=== PATIENT | female | born 1995 | race Caucasian/White ===

== ENCOUNTER 2017-12-05 18:19 | Emergency (ER) | payer MEDICAID, SELFPAY ==
[2017-12-05 18:21] VITALS: BP 131/77; PULSE 125; RESP 16; TEMP 36; O2SAT 95; BMI 35.2
--- NOTE | 2017-12-05 18:25 | ED.RN ---
PT REPORTS THAT SHE DOES NOT WANT TO WAIT IN WAITING ROOM. THIS RN OFFERED PT A WHEELCHAIR. PT REFUSED. PT EDUCATED THAT SHE SHOULD NOT DRIVE IF SHE IS FEELING BAD OR DIZZY. P[T EDUCATED THAT BASED ON SX SHE WOULD NEED EVALUATED IN ED PRIOR TO GOING TO OB. PT STATES, I AM LEAVING I WILL JUST GO TO [place].
== END 2017-12-05 19:17 | disposition left against medical advice (07) ==
LOC: ED 19:02
PROVIDERS: Emergency Provider Emergency Medicine
DX: R11.2 Nausea with vomiting, unspecified (principal)

== ENCOUNTER 2017-12-21 20:20 | Outpatient (CLI) | payer MEDICAID, SELFPAY ==
[2017-12-21 21:13] VITALS: BMI 35.4
[2017-12-21 21:25] LABS: Color, Urine Yellow (Yellow); Glucose, Dipstick Normal (Normal); Ketone-Dipstick 5 mg/dl (Negative); Leukocyte Esterase-Dipstick 25 /ul (Negative); Nitrite-Dipstick Negative (Negative); Occult Blood-Urine Negative /ul (Negative); Protein-Dipstick 15 mg/dl (Negative); Specific Gravity, Urine 1.025 (1.002-1.030); Urine Bilirubin Dipstick Negative (Negative); Urine Clarity Clear (Clear); Urine Urobilinogen 1 mg/dl (Normal)
[2017-12-21 21:31] LABS: Red Blood Cells-Urine 0-5 SEEN /hpf (0-5); Squamous Epithelial Cells - UA 5-10 SEEN /hpf (5-10); White Blood Cells 0-5 SEEN /hpf (0-5)
[2017-12-21 21:32] LABS: Bacteria RARE /hpf (None Seen); Calcium Oxalate Crystals Ur RARE /hpf (<or=2+); Mucous, Urine RARE /hpf (<or=2+)
--- NOTE | 2017-12-22 11:37 | OB.TRI.NOTE ---
History of Present Illness Date of Service: 12/21/17 Was patient seen by the physician?: No Reason For Visit: R/O LABOR Date of Service: 12/21/17 Final TONEY: 03/25/18 Final TONEY Source: US <20 weeks Gestational age: 26 Weeks and 5 Days History of Present Illness: 26+ week uterine presents with lower pelvic pressure. She has had similar symptoms in the past. Had a prior . Denies any contractions or bleeding. Good movement. Home Medications Medication Instructions Recorded NK [NK] 11/30/17 Allergies latex Allergy (Verified 12/21/17 21:15) Hives oxycodone [From Percocet] Adverse Reaction (Verified 12/21/17 21:15) Vomiting NST - FHR Rate Baby A NST Reactive:: Yes Impression/Plan 26+ week intrauterine with some pelvic pressure. Reactive nonstress test. No contractions noted on monitor. Urinalysis shows no blood or bacteria; will send urine for culture and sensitivity. Increase fluids, use Tylenol, call if pressure worsens. Cervix nonthreatening. Routine follow-up in the office.
--- NOTE | 2017-12-22 11:47 | OB.TRI.HP_ITS ---
History of Present Illness Date of Service: 12/21/17 Was patient seen by the physician?: No Reason For Visit: R/O LABOR Date of Service: 12/21/17 Final TONEY: 03/25/18 Final TONEY Source: US <20 weeks Gestational age: 26 Weeks and 5 Days History of Present Illness: 26+ week uterine presents with lower pelvic pressure. She has had similar symptoms in the past. Had a prior . Denies any contractions or bleeding. Good movement. Home Medications Medication Instructions Recorded NK [NK] 11/30/17 Allergies latex Allergy (Verified 12/21/17 21:15) Hives oxycodone [From Percocet] Adverse Reaction (Verified 12/21/17 21:15) Vomiting NST - FHR Rate Baby A NST Reactive:: Yes Impression/Plan 26+ week intrauterine with some pelvic pressure. Reactive nonstress test. No contractions noted on monitor. Urinalysis shows no blood or bacteria ; will send urine for culture and sensitivity. Increase fluids, use Tylenol, call if pressure worsens. Cervix nonthreatening. Routine follow-up in the office.
== END 2017-12-21 22:25 | disposition home or self-care (01) ==
LOC: WPOUT 20:23 → WP 20:23
PROVIDERS: Visit Provider Obstetrics & Gynecology
DX: O34.219 Maternal care for unspecified type scar from previous cesarean delivery (principal); Z3A.26 26 weeks gestation of pregnancy
CPT/HCPCS: 59050; 81001; 87086; 87088; 99218; G0378

== ENCOUNTER → 2017-12-23 11:32 | Outpatient (CLI) | payer MEDICAID, SELFPAY ==
[2017-12-23 13:56] LABS: Hematocrit 34.5 % (37-47); Hemoglobin 11.5 g/dl (12.0-15.0); Mean Corp Hgb Conc 33.3 g/gl (32-36); Mean Corpuscular Hgb 31.1 pg (27.0-32.0); Mean Corpuscular Volume 93.2 fL (81-99); Mean Platelet Vol. 11.2 fl (6.2-12.0); Platelet Count 148 K/mm3 (150-450); RBC Distribution Width CV 13.2 % (11.6-14.6); RBC Distribution Width SD 43.6 fl (35.1-43.9); White Blood Count 8.1 K/mm3 (4.4-11.0)
[2017-12-23 13:57] LABS: Scan Indicated on CBC? Y/N NO
[2017-12-23 14:14] LABS: Glucose Challenge Gest 1H 50g 87 mg/dL (70-140)
== END ==
PROVIDERS: Visit Provider Obstetrics & Gynecology
DX: Z34.82 Encounter for supervision of other normal pregnancy, second trimester (principal)
CPT/HCPCS: 36415; 82950; 85027

== ENCOUNTER 2017-12-31 20:00 | Outpatient (CLI) | payer MEDICAID, SELFPAY ==
[2017-12-31 20:30] VITALS: BMI 35.9
[2017-12-31 21:22] LABS: Bacteria 0 SEEN /hpf (None Seen)
[2017-12-31 21:25] LABS: Color, Urine Yellow (Yellow); Glucose, Dipstick Normal (Normal); Ketone-Dipstick 5 mg/dl (Negative); Leukocyte Esterase-Dipstick 25 /ul (Negative); Nitrite-Dipstick Negative (Negative); Occult Blood-Urine 10 /ul (Negative); Protein-Dipstick 15 mg/dl (Negative); Specific Gravity, Urine 1.025 (1.002-1.030); Urine Bilirubin Dipstick Negative (Negative); Urine Clarity Sl. Cloudy (Clear); Urine Urobilinogen Normal (Normal)
[2017-12-31 21:46] LABS: Amorphous Sediment 1+ URATE; Mucous, Urine 2+ /hpf (<or=2+); Red Blood Cells-Urine 0-5 SEEN /hpf (0-5); Squamous Epithelial Cells - UA 0-5 SEEN /hpf (5-10); White Blood Cells 0-5 SEEN /hpf (0-5)
--- NOTE | 2018-01-02 07:42 | OB.TRI.NOTE ---
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 She ate peanut butter and drank OJ at work and came in here. States no movement. C/O pains, but far apart Pain in epigastrium and now in her back. That resolved. Audible movement noted by RN. Home Medications Medication Instructions Recorded Butalb/Acetaminophen/Caffeine 1 each PO Q6H PRN PRN 12/31/17 [Calknb-Lsyencgc-Ssiv 50-325-40] Allergies latex Allergy (Verified 12/31/17 20:30) Hives oxycodone [From Percocet] Adverse Reaction (Verified 12/31/17 20:30) Vomiting Physical Exam Cervix Dilation (cm): 0 Station: -3 Effacement (%): 0 NST - FHR Rate Baby A Baseline: 130-140s with accels to 150s Variability:: Moderate Accelerations:: 10 x 10 Decelerations:: None NST Reactive:: Yes, Appropriate for gestational age FHR Category:: Category I Uterine Activity:: no UCs noted Impression/Plan 28 wk female with abdominal pain (resolved) shaking at work and low blood sugar per nurse there. NO movement felt by pt but audible on toco False labor Check UA: no bacteria. Sp Gr 10.25 (dehydrated) Home. Ofc appt as scheduled.
== END 2017-12-31 21:15 | disposition home or self-care (01) ==
LOC: WPOUT 20:26 → WP 20:27
PROVIDERS: Visit Provider Obstetrics & Gynecology
DX: O47.03 False labor before 37 completed weeks of gestation, third trimester (principal); Z3A.28 28 weeks gestation of pregnancy; O34.219 Maternal care for unspecified type scar from previous cesarean delivery
CPT/HCPCS: 59025; 59050; 81001; 99218; G0378

== ENCOUNTER → 2018-01-07 10:26 | Outpatient (CLI) | payer MEDICAID, SELFPAY ==
[2018-01-07 11:38] LABS: Absolute Lymphocyte Count 1.39 X10^3/ul (0.83-4.51); Basophil# 0.02 X10^3/uL; Basophil% 0.2 % (0-1); Eosinophil# 0.09 X10^3/uL; Hematocrit 35.6 % (37-47); Hemoglobin 11.4 g/dl (12.0-15.0); Lymphocyte # 1.39 X10^3/ul (4.0); Lymphocyte % 15.2 % (19-41); Mean Corpuscular Hgb 30.2 pg (27.0-32.0); Mean Corpuscular Volume 94.4 fL (81-99); Mean Platelet Vol. 10.8 fl (6.2-12.0); Monocyte# 0.63 X10^3/uL; Monocyte% 6.9 % (0-10); Neutrophil # 6.99 X10^3/uL (2.7-7.7); Neutrophil % 76.4 % (47-70); Platelet Count 148 K/mm3 (150-450); RBC Distribution Width SD 43.1 fl (35.1-43.9); Red Blood Count 3.77 M/mm3 (4.2-5.4); White Blood Count 9.2 K/mm3 (4.4-11.0)
[2018-01-07 11:43] LABS: POSITIVE COUNT NO; POSITIVE DIFFERENTIAL NO; POSITIVE MORPHOLOGY NO
[2018-01-07 12:13] LABS: ALB/GLOB Ratio 0.6 RATIO (0.9-2.4); AST(SGOT) 15 U/L (15-37); Alanine Aminotransfer ALT/SGPT 18 U/L (13-56); Albumin, Serum 2.6 g/dL (3.2-5.0); Alkaline Phosphatase 90 U/L (45-117); Anion Gap 8 (5-15); BUN 8 mg/dL (7-18); BUN/Creat Ratio 17.8 RATIO (10-20); Calcium,Total 8.3 mg/dL (8.5-10.1); Chloride 104 mmol/L (98-107); Creatinine, Serum 0.45 mg/dL (0.55-1.02); EST Glomerular Filtration Rate 185 mL/min (>60); Est Glom Filt Rate - Afr Amer 224 mL/min (>60); Globulin 4.2 g/dL (2.2-4.2); Glucose 77 mg/dL (74-106); Potassium 3.5 mmol/L (3.5-5.1); Protein, Total 6.8 g/dL (6.4-8.2); Sodium Level 138 mmol/L (136-145)
== END ==
PROVIDERS: Visit Provider Obstetrics & Gynecology
DX: O26.899 Other specified pregnancy related conditions, unspecified trimester (principal); R51 Headache; Z3A.00 Weeks of gestation of pregnancy not specified
CPT/HCPCS: 36415; 80053; 85025

== ENCOUNTER 2018-02-01 12:35 | Outpatient (CLI) | payer MEDICAID, SELFPAY ==
[2018-02-01 12:47] VITALS: BMI 36.9
--- NOTE | 2018-02-01 13:40 | US_ITS ---
US OB Limited 1 Or More Fetus INDICATION: bleeding with COMPARISON: None TECHNIQUE: Ultrasonographic grayscale, Doppler duplex investigation of the FINDINGS: There is a single live intrauterine gestation in cephalic presentation with heart rate of 133 beats per minute. The placenta is located fundal and is homogeneous. No evidence of placenta abruption. The KALEE is normal with 15 cm. Estimated gestational age by today's measurements is 33 weeks and 5 days (biparietal diameter 8.4 cm, head circumference 31.5 cm, abdominal circumference 28.3 cm, femur length 6.3 cm. Estimated weight by today's measurements is 2066 g with a standard deviation of 300 g. US/OB Limited With Biometrics IMPRESSION: Single live intrauterine gestation with estimated gestational age of 33 weeks and 5 days. heart rate 133 bpm. Estimated weight 2066 g. Cephalic presentation. KALEE 15 cm. Fundal homogeneous placenta. at 1709 Reported and signed by: Julia Clarke MD Electronically Signed: Julia Clarke MD at 16:07 EDT Tel , Service support ,
[2018-02-01 13:58] LABS: Bacteria 0 SEEN /hpf (None Seen)
[2018-02-01 13:59] LABS: Color, Urine Yellow (Yellow); Glucose, Dipstick Normal (Normal); Ketone-Dipstick Negative (Negative); Leukocyte Esterase-Dipstick 500 /ul (Negative); Nitrite-Dipstick Negative (Negative); Occult Blood-Urine 150 /ul (Negative); Protein-Dipstick 15 mg/dl (Negative); Urine Bilirubin Dipstick Negative (Negative); Urine Clarity Sl. Cloudy (Clear); Urine Urobilinogen Normal (Normal)
[2018-02-01 14:05] LABS: Mucous, Urine RARE /hpf (<or=2+); Red Blood Cells-Urine 5-10 SEEN /hpf (0-5); Squamous Epithelial Cells - UA 5-10 SEEN /hpf (5-10); White Blood Cells 0-5 SEEN /hpf (0-5)
[2018-02-01] MEDS: Nitrofurantoin Macrocrystals 100 MG Capsule PO (15:40)
--- NOTE | 2018-02-02 08:13 | OB.TRI.NOTE ---
History of Present Illness Date of Service: 02/01/18 Was patient seen by the physician?: Yes Reason For Visit: BLEEDING Date of Service: 02/01/18 Final TONEY: 03/25/18 Gestational age: 32 Weeks and 5 Days History of Present Illness: 23 yo female with h/o two prior C/S deliveries at term presents with CC of vaginal bleeding this am and of dec FM for one hour. States pain in lower back also. No h/o kidney stones. Possibly some burning with urination. Allergies latex Allergy (Verified 01/07/18 09:41) Hives oxycodone [From Percocet] Adverse Reaction (Verified 01/07/18 09:41) Vomiting Physical Exam General: Alert, Oriented x3, Cooperative, No apparent distress Abdomen: Soft, Gravid Cervix Dilation (cm): 0 - SSE: no vaginal bleeding. NST - FHR Rate Baby A Baseline: 130-140s avg with accels to 160-170 No UC Variability:: Moderate Accelerations:: 15 x 15 Decelerations:: None NST Reactive:: Yes, Appropriate for gestational age FHR Category:: Category I Uterine Activity:: No UCs Impression/Plan 32 wk Low back pain. ? dysuria Bleeding. Pelvic exam: no vaginal bleeding. Suspect coming from urine. UA showed + bld. Ultrasound: WNL , placanta without evidence of bleed UTI RX sent in for Macrobid RTO as scheduled for next PNV. Will notify of culture as available.
== END 2018-02-01 15:45 | disposition home or self-care (01) ==
LOC: WPOUT 12:42 → WP 02-03 08:41
PROVIDERS: Visit Provider Obstetrics & Gynecology
DX: O23.43 Unspecified infection of urinary tract in pregnancy, third trimester (principal); O34.219 Maternal care for unspecified type scar from previous cesarean delivery; Z3A.32 32 weeks gestation of pregnancy; Z91.040 Latex allergy status
CPT/HCPCS: 59025; 59050; 76815; 76816; 81001; 87086; 87088; 99218; G0378

== ENCOUNTER 2018-02-09 15:05 | Outpatient (CLI) | payer MEDICAID, SELFPAY ==
[2018-02-09 15:51] VITALS: BMI 37.4
--- NOTE | 2018-02-10 04:17 | OB.TRI.HP_ITS ---
History of Present Illness Date of Service: 02/09/18 Was patient seen by the physician?: No Reason For Visit: COMPLAINT OF HEADACHE Date of Service: 02/09/18 Final TONEY: 03/25/18 Gestational age: 33 Weeks and 5 Days History of Present Illness: 33+ week IUP who presents with complaints of migraine-like headache with driving and numbness down her right side. Arrived on the unit with headache in both eyes but denies sensitivity to light. Able to talk and text on the phone without difficulty. Denies feeling any contractions. Patient has a repeat C- section scheduled for March 18. Pain is constant and rates it 5-6 out of 10 in both eyes patient took Tylenol about 2 hours prior to presentation. This provided no relief. Allergies latex Allergy (Verified 01/07/18 09:41) Hives oxycodone [From Percocet] Adverse Reaction (Verified 01/07/18 09:41) Vomiting NST - FHR Rate Baby A NST Reactive:: Yes Impression/Plan 33+ week intrauterine with mild migraine headache. Discussed options for treatment and patient elected to be discharged to home given her headache is fairly mild and she does not wish to go to the emergency room for further treatment. heart tones are reactive. Follow-up in the office tomorrow if headache is persisting or sooner return to the hospital if headache is worsening. No evidence of toxemia.
== END 2018-02-09 16:25 | disposition home or self-care (01) ==
LOC: WPOUT 15:29 → WP 15:29
PROVIDERS: Visit Provider Obstetrics & Gynecology
DX: G43.909 Migraine, unspecified, not intractable, without status migrainosus (principal); O26.893 Other specified pregnancy related conditions, third trimester; Z3A.33 33 weeks gestation of pregnancy; O34.211 Maternal care for low transverse scar from previous cesarean delivery; Z91.040 Latex allergy status
CPT/HCPCS: 59050; 99218; G0378

== ENCOUNTER 2018-02-18 19:35 | Outpatient (CLI) | payer MEDICAID, SELFPAY ==
[2018-02-18 20:10] VITALS: BMI 39.7
[2018-02-18 20:45] LABS: ROM Internal Control Test YES-OK TO RESULT pt. (Internal QC); ROM Patient Test Negative (Negative)
--- NOTE | 2018-02-19 07:53 | OB.TRI.NOTE ---
History of Present Illness Date of Service: 02/18/18 Was patient seen by the physician?: No Reason For Visit: R/O LABOR Date of Service: 02/18/18 Final TONEY: 03/25/18 Gestational age: 35 Weeks and 0 Days History of Present Illness: 23 yo female at 35 wk EGA with h/o two prior term C/S deliveries. Planned repeat C/S at 39 wks EGA. Called in to state gush of fluid noted when sitting on couch. Some cramping. Advised to come in for evaluation of possible SROM. States back pain and irregular UCs to nurse. Allergies latex Allergy (Verified 01/07/18 09:41) Hives oxycodone [From Percocet] Adverse Reaction (Verified 01/07/18 09:41) Vomiting Physical Exam Cervix Dilation (cm): 0 Station: -3 Effacement (%): 0 NST - FHR Rate Baby A Baseline: 110-120s accels to 150s Variability:: Moderate Accelerations:: 15 x 15 Decelerations:: None NST Reactive:: Yes, Appropriate for gestational age FHR Category:: Category I Uterine Activity:: No regular UCs Impression/Plan 35 wk False labor, SROM NEGATIVE. Reactive NST home. RTO as scheduled for visit.
== END 2018-02-18 21:30 | disposition home or self-care (01) ==
LOC: WPOUT 20:02 → WP 20:03
PROVIDERS: Visit Provider Obstetrics & Gynecology
DX: O47.03 False labor before 37 completed weeks of gestation, third trimester (principal); Z3A.35 35 weeks gestation of pregnancy; O34.219 Maternal care for unspecified type scar from previous cesarean delivery
CPT/HCPCS: 59025; 59050; 84112; 99218; G0378

== ENCOUNTER → 2018-02-25 13:01 | Outpatient (CLI) | payer MEDICAID, SELFPAY ==
[2018-02-25 15:18] LABS: Group B Strep DNA By PCR Negative (Negative); Internal Control PASS; Probe Check PASS; Specimen Processing Control PASS
== END ==
PROVIDERS: Visit Provider Obstetrics & Gynecology
DX: Z36.85 Encounter for antenatal screening for Streptococcus B (principal)
CPT/HCPCS: 87081; 87653

== ENCOUNTER 2018-03-08 23:00 | Outpatient (CLI) | payer MEDICAID, SELFPAY ==
[2018-03-08 23:22] VITALS: BMI 39.3
--- NOTE | 2018-03-09 09:54 | OB.TRI.NOTE ---
History of Present Illness Date of Service: 03/08/18 Reason For Visit: R/O LABOR Date of Service: 03/08/18 Final TONEY: 03/25/18 Final TONEY Source: US <20 weeks Gestational age: 37 Weeks and 5 Days History of Present Illness: 37+ week intrauterine with prior presents to rule out labor. Home Medications Medication Instructions Recorded Acetaminophen [Tylenol Extra 1,000 mg PO Q8 03/08/18 Strength] Allergies latex Allergy (Verified 01/07/18 09:41) Hives oxycodone [From Percocet] Adverse Reaction (Verified 01/07/18 09:41) Vomiting NST - FHR Rate Baby A NST Reactive:: Yes FHR Category:: Category I Impression/Plan 37+ week intrauterine with false labor. No contractions were noted on the monitor or palpable by the nurse. Reactive heart tones. Cervix was closed. Released to home with routine follow-up.
== END 2018-03-09 00:35 | disposition home or self-care (01) ==
LOC: WPOUT 23:14 → WP 23:15
PROVIDERS: Visit Provider Obstetrics & Gynecology
DX: O47.1 False labor at or after 37 completed weeks of gestation (principal); Z3A.37 37 weeks gestation of pregnancy; O34.219 Maternal care for unspecified type scar from previous cesarean delivery
CPT/HCPCS: 59050; 99218; G0378

== ENCOUNTER 2018-03-18 09:50 | Inpatient (IN) | payer MEDICAID, SELFPAY ==
[2018-03-11 14:40] VITALS: BMI 39.3
[2018-03-18] VITALS (30 sets, daily range): BP systolic 72–118; BP diastolic 30–77; PULSE 77–115; RESP 16–20; TEMP 35.7–36.8; O2SAT 96–100; BMI 39.0
[2018-03-18] MEDS: Lactated Ringers 1,000 ML 999 ML IV (10:25)
[2018-03-18 10:52] LABS: Hematocrit 36.5 % (37-47); Hemoglobin 11.6 g/dl (12.0-15.0); Mean Corp Hgb Conc 31.8 g/gl (32-36); Mean Corpuscular Hgb 28.8 pg (27.0-32.0); Mean Corpuscular Volume 90.6 fL (81-99); Mean Platelet Vol. 10.9 fl (6.2-12.0); Platelet Count 150 K/mm3 (150-450); RBC Distribution Width SD 46.5 fl (35.1-43.9); Red Blood Count 4.03 M/mm3 (4.2-5.4); Scan Indicated on CBC? Y/N NO; White Blood Count 6.9 K/mm3 (4.4-11.0)
[2018-03-18 11:04] LABS: Partial Thromboplast Time 28.1 Seconds (24.1-36.2); Prothrombin Time (Protime)PT. 12.8 SECONDS (11.7-14.9)
[2018-03-18] MEDS: Lactated Ringers 1,000 ML 150 ML IV (11:23)
--- NOTE | 2018-03-18 11:59 | DCINST_ITS ---
Discharge Diet: No Restrictions Discharge Activity: Return to Normal Activity, May Not Drive, May not drive while taking narcotic pain medications., May Shower Return to work on:: 05/19/18 May resume sexual activity in: 4-6 weeks Call your doctor if your incision/area has: Sudden Increased Bleeding, Increased Pain/ Swelling, Increased Redness, Foul Smelling Discharge, Swelling at the incision site Call your doctor if you observe: Fever of 101 or Higher, Inability to urinate, Inability to have a bowel movement, Using more than one pad per hour, Shortness of breath, Chest pain, Calf discomfort, Uncontrolled pain Remove Dressing in (days):: 2 Cleanse incision/area with: Soap & Water Additional Instructions: If you experience any of the following, contact your healthcare provider. * Bleeding that soaks a pad every hour for 2 hours * Fever 100.4 or higher * Unrelieved incision or abdominal pain * Swelling, redness, discharge or bleeding from your incision or episiotomy site * Your incision begins to separate * Problems urinating (including inability to urinate or burning while urinating) . * Visual changes * Severe headache * Flu-like symptoms * Pain or redness in one of both of your breasts * Pain, warmth, tenderness or swelling in your legs, especially the calf area * Frequent nausea and vomiting * Symptoms of depression or anxiety If you experience any of the following, call 911 or go to the nearest Emergency Room. * Chest pain * Problems breathing * Seizure activity * Partial or complete paralysis of a body part, slurred speech, weakness or drooping of the face, or a sudden inability to walk or hold your balance Allergies/Adverse Reactions: Allergies latex Allergy (Verified 01/07/18 09:41) Hives oxycodone [From Percocet] Adverse Reaction (Verified 01/07/18 09:41) Vomiting Medications to take at Discharge Acetaminophen [Tylenol Extra Strength] 1,000 mg PO Q8 03/08/18 Ibuprofen [Motrin] 800 mg PO TID PRN PRN #30 tab 03/18/18 Oxycodone [Oxyir] 5 - 10 mg PO Q4H PRN PRN 7 Days #30 tab 03/18/18 The following prescriptions were given: Oxycodone [Oxyir] 5 - 10 mg PO Q4H PRN PRN 7 Days #30 tab PRN Reason: Mod-Severe Pain (4-08/20) Ibuprofen [Motrin] 800 mg PO TID PRN PRN #30 tab PRN Reason: pain or cramping Follow-Up: Call to make an appointment with your doctor for an incision check in 1-2 weeks. You will also need a 6 week post- follow up appointment. Please Follow Up With: Billy Pimentel MD When: one week Primary Care Physician: Care Physician,No Primary [Primary Care Provider] - Proposed Discharge Date: 03/21/18
--- NOTE | 2018-03-18 12:00 | PCM.OPRPT ---
Problem List (1) Previous delivery, delivered Status: Chronic Comment: x 2- 53% likelihood for success, would not recommend TOLAC here in [facility] plan RLTCS if stays here. Report of Operation Date of Procedure: 03/18/18 Pre-Operative Diagnosis: Previous section (Two) Post-Operative Diagnosis: Same Surgery/Procedure Performed:: Repeat Low Transverse Section Description of Surgical Findings:: Normal appearing uterus, ovaries, and fallopian tubes. Lower uterine segment extremely thin. Amniotic fluid clear. Live male delivered from vertex presentation. Apgars 9/9. film maker: Cal Moreno Type of Anesthesia:: Spinal Anesthesiologist: Darryl Sales Special Medications: none Specimen's removed: none Drains: bernardo Estimated Blood Loss (mL): 400cc Fluids Replaced: 1500cc LR Description of Procedure: Lisbeth was taken tot he OR with IV running. Procedures, risks, and postoperative expectations discussed previously. SHe declines tubal ligation in conjunction with the planned repeat section. She was given 2 grams of Ancef intravenously prior to the procedure. SPinal anesthesia was then introduced without complication. She was then prepped and draped in the supine position with a leftward tilt. A bernardo catheter was placed aseptically. Once anesthesia deemed adequate a Pfannensteil incision was made in the lower abdomen over the prior lower abdominal scar. The underlying subcutaneous tissue was then dissected down to the level of fascia using sharp and blunt dissection. The fascia was then incised laterally in the midline and this incision was extended bilaterally with the [place] scissors. The rectus muscles were then dissected off the fascia with sharp dissection. The rectus muscles were then in the midline, the peritoneum identified and entered sharply. This defect was then extended using blunt retraction. A bladder blade was then placed. The vesicouterine peritoneum was the incised and abladder flap was created. The bladder blade was replaced. The lower uterine segment was then incised and once the membranes exposed the uterine incision was enlarged using blunt lateral and superior traction. The membranes were then ruptured with clear fluid noted. The baby's head was then delivered atraumatically followed by the body. The nose and mouth were suctioned with a bulb suction. Delayed cord clamping was employed. There was an active cry from the newbord within one minute of delivery. The cord was then clamped and cut. The placenta was then delivered manually, the uterus exteriorised and cleared of all clots and membranes. The uterine incision was then closed in two layers with #1 Vicryll suture. Where necessary figure of eight sutures of 0-Vicryl suture were used to effect excellent hemostasis. The posterior cul de sac and gutters were then cleared of all clot and fluid. Thge uterine incision was then inspected and found to be hemostatic. The peritoneum was closed with a running stitch of 2-0 vicryl. The rectus muscles were reapproximated with interrupted sutures of 0-Vicryl. The fascia was closed with a running stitch of #1 Stratofix suture. The subcutaneous tissue was closed with 2-0 Vicryl. The skin was closed with a subcuticular stitch of 4-0 MOnocryl. SPonge, lap, and needle counts were correct. She was taken to the recovery room in stable condition. Urine was noted to be clear. Grafts/Implants Used: none - Complications none - Admit VTE Documentation VTE Present on Admission: No VTE Mechan Device Prophylaxis: SCD's VTE Pharm Prophylaxis ordered?: No
[2018-03-18] MEDS: Sodium Citrate/Citric Acid 30 ML UDC PO (12:15)
[2018-03-18] MEDS: Oxytocin 30 units/NS 500 ml 30 UNITS/500 ML IV.SOLN 167 UNITS IV (12:40)
[2018-03-18] MEDS: Ondansetron 4 MG/2 ML Vial IV (13:52)
[2018-03-18] MEDS: Ketorolac 30 MG/ML Syringe IV (13:52)
[2018-03-18] MEDS: Lactated Ringers 500 ML 999 ML IV ×2 (14:15→16:15)
--- NOTE | 2018-03-18 14:25 | NURSING ---
Dr. Pimentel to room to evaluate pt. Bedside u/s done to evaluate abd/uterus. Poss. clot noted - no tachycardia observed at this time. BP changes >20%, bolus running. Pulse ox and RR stable. Pt. c/o pain and tenderness with exam of abd., worse over left side. FF @ 2/u, to left. Will check cbc and pt/ptt and call with results. Will keep Dr. Pimentel informed.
--- NOTE | 2018-03-18 15:10 | NURSING ---
Dr. Pimentel called and updated on pt. condition. Reported BP's running 80's-100's systolic, pt. more alert than she was earlier. Continue to see urine in bernardo tube, although concentrated. Pulse ox and RR rate stable, as well as pulse. Pt. continues to complain of increasing tenderness as spinal is wearing off. Discussed pt. with Dr. Lay, and no new orders from him. Will continue to observe. Will call to office for Dr. Pimentel when labs are back. No new orders at this time.
[2018-03-18 15:17] LABS: Hematocrit 30.8 % (37-47); Hemoglobin 9.7 g/dl (12.0-15.0); Mean Corp Hgb Conc 31.5 g/gl (32-36); Mean Corpuscular Hgb 29.1 pg (27.0-32.0); Mean Corpuscular Volume 92.5 fL (81-99); Mean Platelet Vol. 10.5 fl (6.2-12.0); Platelet Count 164 K/mm3 (150-450); RBC Distribution Width CV 13.7 % (11.6-14.6); RBC Distribution Width SD 44.5 fl (35.1-43.9); Red Blood Count 3.33 M/mm3 (4.2-5.4); Scan Indicated on CBC? Y/N NO; White Blood Count 11.3 K/mm3 (4.4-11.0)
[2018-03-18 15:23] LABS: International Normalized Ratio 1.1; Partial Thromboplast Time 26.7 Seconds (24.1-36.2); Prothrombin Time (Protime)PT. 14.2 SECONDS (11.7-14.9)
--- NOTE | 2018-03-18 15:40 | NURSING ---
CBC results reported to Dr. Pimentel, as well as VS, pt. alert, no changes in status - no new orders received. Plans to see pt. after office hours.
--- NOTE | 2018-03-18 16:10 | NURSING ---
Dr. Pimentel in room to see pt. Bedside u/s done, area thought to be poss. clot not bigger, poss. smaller. Pt. has tenderness to left side with fundal check. No other changes in VS. Will recheck CBC at 1900, call with major changes in that. Also will check CBC in am. No other orders received at this time. Pt. ok to eat.
--- NOTE | 2018-03-18 16:19 | PCM.PN.OB ---
Subjective: Some what painful especially fundus. Awake and alert. Attempting breast feeding. No nausea. Objective: Afeb BP 90-100/50-60s HR 70s Urine output 125cc since C/S completed at 1 pm - Physical Exam General: Alert, Oriented x3, Cooperative, No apparent distress Abdomen: Soft, - - Approipriately tender--fundus somewhat displaced to the left Extremities: No edema Psych/Mental Status: Normal Affect Comment: Vaginal bleeding light Vital Signs Temp Pulse Resp BP Pulse Ox 97.3 F L 100 16 91/31 L 98 03/18/18 13:20 03/18/18 14:05 03/18/18 14:05 03/18/18 14:05 03/18/18 14:05 Oxygen Delivery Method Room Air Weight: 234 lb 12.677 oz Body Mass Index (BMI) 39.0 Intake and Output for Last 24 Hours 03/16/18 03/17/18 03/18/18 23:59 23:59 23:59 Intake Total 2500 / 2500 Balance 2500 / 2500 Laboratory Tests Past 24 Hrs 03/18/18 03/18/18 03/18/18 10:25 10:25 10:25 WBC 6.9 RBC 4.03 L Hgb 11.6 L Hct 36.5 L MCV 90.6 MCH 28.8 MCHC 31.8 L RDW 14.0 RDW Differential 46.5 H Plt Count 150 MPV 10.9 PT 12.8 INR 1.0 APTT 28.1 Blood Type A POSITIVE Antibody Screen NEGATIVE 03/18/18 03/18/18 14:35 14:35 WBC 11.3 H RBC 3.33 L Hgb 9.7 L Hct 30.8 L MCV 92.5 MCH 29.1 MCHC 31.5 L RDW 13.7 RDW Differential 44.5 H Plt Count 164 MPV 10.5 PT 14.2 INR 1.1 APTT 26.7 Blood Type Antibody Screen Medical Necessity - Tobacco Use Smoking Status: Former smoker Assessment/Plan Hgb appropriate after C/S. I performed bedside US an may be a right lower uterine clot/hemtoma but has not changed in size over the last 1.5 hours. Will repeat CBC in 3 hours to check for stability. CBC in am as well.
--- NOTE | 2018-03-18 17:15 | NURSING ---
Pt. c/o pain rated 7/10. Order for Demerol received from anesthesia. Given to pt. Pt. c/o numbness and tingling to mouth after dose. Vomiting after dose. BP cont. to run 80's/50's, HR low 100's after Demerol dose. Discussed Phenergan with charge nurse, devorah santa. Plan to not give Phenergan at this time due to side effects and pt's VS.
--- NOTE | 2018-03-18 18:00 | NURSING ---
Discussed pt. with Dr. Coon and KALIN Richey. Discussed sx and plan of care. New pain med orders received per Dr. coon. Will continue to observe.
[2018-03-18] MEDS: Lactated Ringers 1,000 ML 100 ML IV (18:23)
[2018-03-18 19:10] LABS: Absolute Lymphocyte Count 1.12 X10^3/ul (0.83-4.51); Absolute Neutrophil Count 13.1 X10^3/uL (2.0-7.7); Basophil# 0.01 X10^3/uL; Basophil% 0.1 % (0-1); Eosinophil# 0.01 X10^3/uL; Eosinophils% 0.1 % (0-5); Hematocrit 28.3 % (37-47); Lymphocyte # 1.12 X10^3/ul (4.0); Lymphocyte % 7.5 % (19-41); Mean Corp Hgb Conc 31.8 g/gl (32-36); Mean Corpuscular Hgb 28.9 pg (27.0-32.0); Mean Platelet Vol. 10.9 fl (6.2-12.0); Monocyte# 0.74 X10^3/uL; Monocyte% 4.9 % (0-10); Neutrophil # 13.07 X10^3/uL (2.7-7.7); Neutrophil % 87.2 % (47-70); POSITIVE COUNT NO; POSITIVE DIFFERENTIAL NO; POSITIVE MORPHOLOGY NO; Platelet Count 187 K/mm3 (150-450); RBC Distribution Width CV 14.1 % (11.6-14.6); RBC Distribution Width SD 46.1 fl (35.1-43.9); Red Blood Count 3.11 M/mm3 (4.2-5.4)
[2018-03-18] MEDS: Cefazolin 1 GM/50 ML BAG IV (20:29)
[2018-03-18] MEDS: Acetaminophen 500 MG Tablet 1000 MG PO (21:14)
[2018-03-18] MEDS: Lactated Ringers 250 ML 999 ML IV (23:46)
[2018-03-19] VITALS (11 sets, daily range): BP systolic 97–119; BP diastolic 52–61; PULSE 83–114; RESP 16–18; TEMP 36.3–37.1; O2SAT 96–100
[2018-03-19] MEDS: Lactated Ringers 1,000 ML 200 ML IV ×2 (00:02→05:39)
[2018-03-19] MEDS: Cefazolin 1 GM/50 ML BAG IV (04:41)
[2018-03-19] MEDS: Acetaminophen 500 MG Tablet 1000 MG PO ×2 (05:39→16:53)
[2018-03-19] MEDS: 0.9% Saline Lock 10 ML Syringe IV (05:39)
[2018-03-19 05:41] LABS: Hemoglobin 6.4 g/dl (12.0-15.0); Mean Corpuscular Hgb 29.6 pg (27.0-32.0); Mean Corpuscular Volume 92.6 fL (81-99); Mean Platelet Vol. 10.7 fl (6.2-12.0); Platelet Count 160 K/mm3 (150-450); RBC Distribution Width CV 13.7 % (11.6-14.6); RBC Distribution Width SD 43.5 fl (35.1-43.9); Red Blood Count 2.16 M/mm3 (4.2-5.4); White Blood Count 8.6 K/mm3 (4.4-11.0)
[2018-03-19 05:46] LABS: Scan Indicated on CBC? Y/N NO
[2018-03-19 06:24] LABS: Hematocrit 19.7 % (37-47); Hemoglobin 6.3 g/dl (12.0-15.0); Mean Corpuscular Hgb 29.7 pg (27.0-32.0); Mean Corpuscular Volume 92.9 fL (81-99); Mean Platelet Vol. 10.8 fl (6.2-12.0); Platelet Count 154 K/mm3 (150-450); RBC Distribution Width SD 44.6 fl (35.1-43.9); Red Blood Count 2.12 M/mm3 (4.2-5.4); White Blood Count 8.7 K/mm3 (4.4-11.0)
[2018-03-19 06:25] LABS: Scan Indicated on CBC? Y/N NO
--- NOTE | 2018-03-19 07:44 | PN.OBGYN_ITS ---
Subjective: Appears comfortable. Pain reasonably controlled. Bleeding light. Breast feeding. Objective: AFeb VSS. Hgb with drop from 9.0 to 6.3 overnight. Urine output adequate. - Physical Exam General: Alert, Oriented x3, Cooperative, No apparent distress Lungs: Clear to auscultation, Normal air movement Cardiovascular: Regular rate, Regular Rhythm Abdomen: Soft, Non Tender, Non-Distended, - - Fundus firm midline. Tender right lower quadrant. Extremities: No edema, No Calf Tenderness Skin: No rashes Neurological: Neuro grossly intact Psych/Mental Status: Normal Affect Comment: Lochia light Vital Signs Temp Pulse Resp BP Pulse Ox 97.9 F 98 18 105/55 L 100 03/19/18 04:00 03/19/18 05:48 03/19/18 05:48 03/19/18 04:00 03/19/18 05:48 Oxygen Delivery Method Room Air Weight: 234 lb 12.677 oz Body Mass Index (BMI) 39.0 Intake and Output for Last 24 Hours 03/17/18 03/18/18 03/19/18 23:59 23:59 23:59 Intake Total 7130 / 7130 1831 / 1831 Output Total 1300 / 1300 775 / 775 Balance 5830 / 5830 1056 / 1056 Laboratory Tests Past 24 Hrs 03/18/18 03/18/18 03/18/18 10:25 10:25 10:25 WBC 6.9 RBC 4.03 L Hgb 11.6 L Hct 36.5 L MCV 90.6 MCH 28.8 MCHC 31.8 L RDW 14.0 RDW Differential 46.5 H Plt Count 150 MPV 10.9 Immature Gran % (Auto) Neut % (Auto) Lymph % (Auto) Chambers % (Auto) Eos % (Auto) Baso % (Auto) Absolute Neuts (auto) Absolute Lymphs (auto) Total Counted PT 12.8 INR 1.0 APTT 28.1 Blood Type A POSITIVE Antibody Screen NEGATIVE 03/18/18 03/18/18 03/18/18 14:35 14:35 18:55 WBC 11.3 H 15.0 H RBC 3.33 L 3.11 L Hgb 9.7 L 9.0 L Hct 30.8 L 28.3 L MCV 92.5 91.0 MCH 29.1 28.9 MCHC 31.5 L 31.8 L RDW 13.7 14.1 RDW Differential 44.5 H 46.1 H Plt Count 164 187 MPV 10.5 10.9 Immature Gran % (Auto) 0.200 Neut % (Auto) 87.2 H Lymph % (Auto) 7.5 L Chambers % (Auto) 4.9 Eos % (Auto) 0.1 Baso % (Auto) 0.1 Absolute Neuts (auto) 13.1 H Absolute Lymphs (auto) 1.12 Total Counted Not Reportable PT 14.2 INR 1.1 APTT 26.7 Blood Type Antibody Screen 03/19/18 03/19/18 05:30 06:14 WBC 8.6 8.7 RBC 2.16 L 2.12 L Hgb 6.4 L 6.3 L Hct 20.0 L 19.7 L MCV 92.6 92.9 MCH 29.6 29.7 MCHC 32.0 32.0 RDW 13.7 14.0 RDW Differential 43.5 44.6 H Plt Count 160 154 MPV 10.7 10.8 Immature Gran % (Auto) Neut % (Auto) Lymph % (Auto) Chambers % (Auto) Eos % (Auto) Baso % (Auto) Absolute Neuts (auto) Absolute Lymphs (auto) Total Counted PT INR APTT Blood Type Antibody Screen Medical Necessity - Tobacco Use Smoking Status: Former smoker Assessment/Plan Hgb drop overnight. Possible right lower abdominal hematoma. Will continue to observe for now with repeat hgb at noon. If vital signs show signs of reaction to low hgb will consider transfusion or if hgb drops further. Continue bernardo for now.
[2018-03-19] MEDS: Lactated Ringers 1,000 ML 100 ML IV (08:00)
[2018-03-19 12:52] LABS: Absolute Lymphocyte Count 1.41 X10^3/ul (0.83-4.51); Absolute Neutrophil Count 5.2 X10^3/uL (2.0-7.7); Basophil# 0.01 X10^3/uL; Basophil% 0.1 % (0-1); Differential Indicated SCAN CRITERIA MET; Eosinophil# 0.07 X10^3/uL; Hematocrit 18.2 % (37-47); Hemoglobin 5.8 g/dl (12.0-15.0); Lymphocyte # 1.41 X10^3/ul (4.0); Lymphocyte % 19.9 % (19-41); Mean Corp Hgb Conc 31.9 g/gl (32-36); Mean Corpuscular Hgb 28.7 pg (27.0-32.0); Mean Corpuscular Volume 90.1 fL (81-99); Mean Platelet Vol. 10.6 fl (6.2-12.0); Monocyte# 0.34 X10^3/uL; Monocyte% 4.8 % (0-10); Neutrophil # 5.24 X10^3/uL (2.7-7.7); Neutrophil % 74.2 % (47-70); POSITIVE COUNT YES; POSITIVE DIFFERENTIAL NO; POSITIVE MORPHOLOGY NO; Platelet Count 140 K/mm3 (150-450); RBC Distribution Width CV 14.4 % (11.6-14.6); RBC Distribution Width SD 47.4 fl (35.1-43.9); Red Blood Count 2.02 M/mm3 (4.2-5.4); White Blood Count 7.1 K/mm3 (4.4-11.0)
[2018-03-19] MEDS: HYDROcodone Bitartrate/Apap 5/325 Tablet PO (12:52)
--- NOTE | 2018-03-19 12:55 | NURSING ---
PATIENT REQUESTING THORNTOWN AT THIS TIME.
--- NOTE | 2018-03-19 14:51 | CASEMGMT ---
Social Work Note Labor and Delivery Unit Consult received for resources. Chart reviewed and spoke with RN caring for patient today. Patient just recently got up today. Based on how patient has been doing medically, and how wore out patient has been so far, this caption writer will see patient tomorrow for assessment and resources. Plan: Will follow up on 03-20-18. -GEORGE Gamboa, ESCROW SECRETARY
[2018-03-19] MEDS: Ketorolac 30 MG/ML Syringe IV (18:41)
[2018-03-19] MEDS: Senna/Docusate Sodium 1 Tablet PO (20:22)
[2018-03-20] VITALS (15 sets, daily range): BP systolic 96–138; BP diastolic 48–75; PULSE 98–108; RESP 16–18; TEMP 36.3–37.5; O2SAT 98–100
[2018-03-20] MEDS: HYDROcodone Bitartrate/Apap 5/325 Tablet PO ×4 (01:28→22:05)
[2018-03-20 05:07] LABS: Absolute Lymphocyte Count 1.05 X10^3/ul (0.83-4.51); Absolute Neutrophil Count 5.6 X10^3/uL (2.0-7.7); Basophil# 0.01 X10^3/uL; Basophil% 0.1 % (0-1); Eosinophil# 0.15 X10^3/uL; Eosinophils% 2.1 % (0-5); Hematocrit 14.5 % (37-47); Lymphocyte # 1.05 X10^3/ul (4.0); Lymphocyte % 14.5 % (19-41); Mean Corp Hgb Conc 31.7 g/gl (32-36); Mean Corpuscular Hgb 28.8 pg (27.0-32.0); Mean Corpuscular Volume 90.6 fL (81-99); Mean Platelet Vol. 10.5 fl (6.2-12.0); Monocyte# 0.49 X10^3/uL; Monocyte% 6.7 % (0-10); Neutrophil # 5.56 X10^3/uL (2.7-7.7); Neutrophil % 76.6 % (47-70); Platelet Count 124 K/mm3 (150-450); RBC Distribution Width CV 14.8 % (11.6-14.6); RBC Distribution Width SD 48.3 fl (35.1-43.9); White Blood Count 7.3 K/mm3 (4.4-11.0)
[2018-03-20 05:22] LABS: Differential Indicated SCAN CRITERIA MET; Hemoglobin 4.6 g/dl (12.0-15.0); POSITIVE COUNT YES; POSITIVE DIFFERENTIAL NO; POSITIVE MORPHOLOGY NO
[2018-03-20 05:28] LABS: Differential Comment SCAN
[2018-03-20 05:29] LABS: Hypochromasia 1+
--- NOTE | 2018-03-20 05:29 | NURSING ---
Repeat CBC drawn- Results called up as critical lab - Hgb. is 4.6 Dr. Pimentel notified via phone and order received for transfusion of 2 units PRBC's
--- NOTE | 2018-03-20 07:50 | NURSING ---
Spoke with Dr Pimentel, plan is to finish transfusing 2 units PRBCs and recheck HGB [address] Pimentel of pt c/o upper abdomen pain and doctor already aware. No new plans at this time.
--- NOTE | 2018-03-20 07:54 | PN.OBGYN_ITS ---
Subjective: Having mild heasdache today. Pain right lower quadrant but reasonably controlled. Bleeding light. Breast feeding. Not dizzy. No SOB. Objective: Afeb VSS. Hgb low at 4.6 today which is 1.3 drop from yesterday am. - Physical Exam General: Alert, Oriented x3, Cooperative, No apparent distress Lungs: Clear to auscultation, Normal air movement Cardiovascular: Regular rate, Regular Rhythm Abdomen: Soft, Non-Distended, - - Tender right lower quadrant. Incision dressing dry Extremities: Edema - trace LE Skin: No rashes Neurological: Neuro grossly intact Psych/Mental Status: Normal Affect Comment: Lochia light Vital Signs Temp Pulse Resp BP Pulse Ox 98.0 F 75 16 105/63 99 03/20/18 07:40 03/20/18 07:40 03/20/18 07:40 03/20/18 07:40 03/20/18 07:40 Oxygen Delivery Method Room Air Weight: 234 lb 12.677 oz Body Mass Index (BMI) 39.0 Intake and Output for Last 24 Hours 03/18/18 03/19/18 03/20/18 23:59 23:59 23:59 Intake Total 7130 / 7130 2732 / 2732 0 / 0 Output Total 1300 / 1300 2475 / 2475 Balance 5830 / 5830 257 / 257 0 / 0 Laboratory Tests Past 24 Hrs 03/18/18 03/19/18 03/20/18 10:25 12:30 04:50 WBC 7.1 7.3 RBC 2.02 L 1.60 L Hgb 5.8 L* 4.6 L* Hct 18.2 L 14.5 L MCV 90.1 90.6 MCH 28.7 28.8 MCHC 31.9 L 31.7 L RDW 14.4 14.8 H RDW Differential 47.4 H 48.3 H Plt Count 140 L 124 L MPV 10.6 10.5 Immature Gran % (Auto) 0.000 0.000 Neut % (Auto) 74.2 H 76.6 H Lymph % (Auto) 19.9 14.5 L Dillon % (Auto) 4.8 6.7 Eos % (Auto) 1.0 2.1 Baso % (Auto) 0.1 0.1 Absolute Neuts (auto) 5.2 5.6 Absolute Lymphs (auto) 1.41 1.05 Total Counted Not Reportable Not Reportable Differential Comment SCAN Diff Path Review May foll Hypochromasia 1+ Crossmatch See Detail Medical Necessity - Tobacco Use Smoking Status: Former smoker Assessment/Plan POD#2. s/p repeat section. Drop in hemoglobin over last 24 hours. Given low level of hgb am transfusing 2 units of PRBC. Will recheck in 24 hours. Relatively asymptomatic. Likely has pelvic hematoma. If stabilized after transfusion could consider discharge late tomorrow or on 03/22.
[2018-03-20] MEDS: Ibuprofen 600 MG Tablet PO ×2 (09:41→19:09)
[2018-03-20 12:38] LABS: Pathologist Review Reviewed
--- NOTE | 2018-03-20 14:42 | CASEMGMT ---
Social Work Note - Labor and Delivery Unit Social Work Assessment completed. Refer to documentation below for further details. Date of Referral: 03/18/2018 Time of Referral: 193 Referred By: Dr. Pimentel Date of Intervention: 03/20/2018 Time of Intervention: 1210 Reason for Referral: Resources History obtained from: medical record and mother of baby (MOB) Lisbeth Escudero. Reported father of baby (FOB) Zenaida Newell present for part of conversation. Household composition: MOB and children live in a rental home. MOB reports home situation is safe and adequate. Patient's parent/guardian status: MOB and FOB have been together for about 11 months. FOB was living with MOB from May 2017 to November 2017 when FOB moved to [place] to be closer to family, as the FOBs grandmother is sick. FOB came back to [place] a few weeks ago and will be staying with MOB for about a month or so before returning to [place]. MOB reports she and FOB are still involved and together. Mingus, Bijal Newell, is the first child for MOB and FOB together. FOB reports to have 4 other children ranging in ages from 1 to 8 years old. MOB has two older children. MOBs children include: Ziggy Guevara (b. --14), Soto Escudero (b. 01-18-16) and Bijal Newell (b. --18). Each of MOBs children do have different paternity. Jeana father has no contact, does pay some child support. Aubreys father Billy Handy lives 5 doors down from SASHA, but only sees Soto intermittently. Billy does pay child support. Medical History: SASHA is G3, P2 to 3 after delivering Bijal. MOB with care starting at 10 weeks gestation. Bijal delivered via repeat caesarian section at 7 pounds 5 ounce, Apgars 8 and 9. Educational Status: MOB graduated high school. 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 MOB reports ability to read and write, no issues with learning or comprehension. Financial Status: SASHA is not currently working, not in about a month or so. 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 At this point, SASHA gets some child support about 137 a month from one father and 196 a month from another father. MOBs father has been helping MOB out financially as well. MOB reports current FOArnoldo has been contributing financially throughout this . MOB plans to apply for factory work when done with maternity leave. Infant Supplies: MOB reports to have needed supplies including a car seat, pack-n-play, bottles, clothing, diapers, wipes, and a breast pump. Childcare/Caregiver(s): MOB will be primary caregiver. MOBs father helps with early childhood director when MOB works. Transportation: MOB reports to have reliable transportation. Programs/Agencies Involved: MOB reports to have medical and 100 dollars in food assistance through [facility]. MOB reports interest in obtaining WIC, for which MOB should be able to enroll all three children. MOB reports oldest son goes to school through [employer]. Children Services/Legal Issues: MOB denies any history of or current involvement with children services. Behavioral Health Issues: Mental Health: MOB reports as a child was diagnosed with ADD, treated with Adderall. MOB reports as an adult only took this medication for about 3 weeks and this was when MOB was seeking COOKING TEACHER training and testing. MOB reports history of depression after Ziggy was born and was treated with Zoloft. MOB reports belief that Zoloft was helpful. MOB denies any official diagnosis of anxiety, but report perception that does struggle with anxiety. MOB denies any history or current thoughts, plans or intent for suicide or harm to others. MOB denies that suicide has ever been an option for MOB. MOB reports thought that did take a depression screening during , when sent to a specialist and that MOB was told depression symptoms were present. Substance Use History: MOB denies any history for self with alcohol, illicit drugs, or abuse of narcotic prescriptions. MOB reports has tried alcohol before but this is not something MOB has enjoyed or does often, and definitely not during . Drug Screens: MOB did have a negative drug screen on 08-28-17. Family/Social Stressors: MOB reports to moved apartments this , and though move was for the better to a better neighborhood, MOB did have this life change. This occurred in November. MOBs mother, who was a strong support to MOB just recently moved to [place]. FOArnoldo was living with MOB until November but moved to [place] to be with family. MOB reports this is hard right now, as wants to go to [place] but feels cannot as Ariel father is threatening to take MOB to court if MOB takes Soto out of state. MOB reports there is no legal visitation set up with Ariel christie, but reports that just doesnt feel up to fighting this man in court should he follow through with threats. MOB reports also to know that the man would not win as this man reportedly has some addiction issues. MOB reports finances are hard, that when working makes just over the income level for much support. Right now MOB is not working and is being helped out by Debra father. Support Systems: MOB reports for practical help MOBs father and brothers are helpful. MOB reports her father is a big help, and helps with the kids often. MOB reports her mother, though in [place] remains a support and will send MOB things when needed. SASHAs mother will also be up to [place] to visit at the end of March. MOB reports at home going will have help from FOB who plans to stay in [place] for at least a month. So, MOB will have FOB for a month and then SASHAs mother will be visiting for a time period. Depression/Shaken Baby/Safe Sleeping: MOB able to give appropriate responses to shaken baby and safe sleeping. MOB admits to history of depression, and reports to feel that some level of depression is present at this time. MOB reports thought that may be a good idea to start Zoloft as found this helpful before. MOB agrees to take a depression and anxiety screens during this hospital stay. ASSESSMENT: MOB up and moving around in room when high school social studies teacher entered. MOB smiling, bright affect initially. FOB present during this time. As conversation went on high school social studies teacher observed a shift in MOBs demeanor, appearing to have a difficult time as evidence by restless movements in chair, decreased eye contact, and complaints of pain. Asked FOB to leave for private conversation. When FOB left, MOB started to cry and cried intermittently throughout the rest of the visit. MOB talked about stressors listed above, and being sad that wont be able to go back to [place] with FOB. MOB reports FOB is good to MOB and treats MOB well. Supportive listening and encouragement given to MOB. MOB voiced thought that may be a good idea to start back on Zoloft. This medical underwriter agreed to talk to RN to see if RN can discussed with OBGYN if appropriate at this juncture. MOB also in agreement with referral to counseling. MOB reports last episode of counseling was as a teen when MOB suffered some trauma. MOB reports to have needed supplies for baby however, and reports for a month or so will have someone at home helping MOB with the children and transition home. MOB appearing receptive to social work visit, pleasant, cooperative, and seeming open about how currently feeling. Spoke with Shanta Baker RN, caring for MOB today. Updated to MOB's interest in starting on Zoloft, and that MOB reports past positive experience with this medicine. PLAN: Provided MOB with [place] Depression screen as well as the Generalized Anxiety Disorder, 7 item screen. Will await MOB to complete. Directed MOB that should answer this on her own, and not ask for input from others. MOB signed a release of information to [facility], MOBs choice for referral, so will be working on getting MOB a counseling appointment established. Will be following up with MOB on 03-21-18 to review mental health screens and provide resources for home going. .-ELICIA Gamboa, INCINERATOR PLANT SUPERVISOR
[2018-03-20] MEDS: Senna/Docusate Sodium 1 Tablet PO (22:05)
[2018-03-21 02:10] VITALS: BP 123/50; PULSE 105; RESP 18; TEMP 36.2
[2018-03-21] MEDS: Ibuprofen 600 MG Tablet PO (02:13)
[2018-03-21] MEDS: HYDROcodone Bitartrate/Apap 5/325 Tablet PO ×2 (03:54→10:09)
[2018-03-21 07:21] LABS: Absolute Neutrophil Count 4.1 X10^3/uL (2.0-7.7); Basophil# 0.01 X10^3/uL; Basophil% 0.1 % (0-1); Eosinophil# 0.31 X10^3/uL; Eosinophils% 4.6 % (0-5); Hematocrit 21.8 % (37-47); Hemoglobin 7.1 g/dl (12.0-15.0); Lymphocyte % 27.9 % (19-41); Mean Corp Hgb Conc 32.6 g/gl (32-36); Mean Corpuscular Hgb 30.1 pg (27.0-32.0); Mean Corpuscular Volume 92.4 fL (81-99); Mean Platelet Vol. 10.3 fl (6.2-12.0); Monocyte# 0.52 X10^3/uL; Monocyte% 7.6 % (0-10); Neutrophil # 4.05 X10^3/uL (2.7-7.7); Neutrophil % 59.5 % (47-70); Platelet Count 137 K/mm3 (150-450); RBC Distribution Width CV 14.6 % (11.6-14.6); RBC Distribution Width SD 46.4 fl (35.1-43.9); Red Blood Count 2.36 M/mm3 (4.2-5.4); White Blood Count 6.8 K/mm3 (4.4-11.0)
[2018-03-21 07:23] LABS: POSITIVE COUNT NO; POSITIVE DIFFERENTIAL NO; POSITIVE MORPHOLOGY NO
[2018-03-21 08:24] VITALS: BP 118/66; PULSE 101; RESP 16; TEMP 36.6
--- NOTE | 2018-03-21 09:13 | PCM.PN.OB ---
Subjective: Having abdominal soreness and pain. Also having headache. [place] not effective by itself for pain control. Breast feeding. Vaginal bleeding light. Objective: Afeb VSS - Physical Exam General: Alert, Oriented x3, Cooperative, No apparent distress Lungs: Clear to auscultation, Normal air movement Cardiovascular: Regular rate, Regular Rhythm Abdomen: Soft, - - Appropriately tender. Funduis firm. Incision dressing dry. Extremities: Edema - 1+ pedal edema Neurological: Neuro grossly intact Psych/Mental Status: Normal Affect Comment: Lochia light Vital Signs Temp Pulse Resp BP Pulse Ox 97.8 F 101 H 16 118/66 100 03/21/18 08:24 03/21/18 08:24 03/21/18 08:24 03/21/18 08:24 03/20/18 13:52 Oxygen Delivery Method Room Air Weight: 234 lb 12.677 oz Body Mass Index (BMI) 39.0 Intake and Output for Last 24 Hours 03/19/18 03/20/18 03/21/18 23:59 23:59 23:59 Intake Total 2732 / 2732 800 / 800 Output Total 2475 / 2475 Balance 257 / 257 800 / 800 Laboratory Tests Past 24 Hrs 03/18/18 03/20/18 03/21/18 10:25 04:50 07:00 WBC 6.8 RBC 2.36 L Hgb 7.1 L Hct 21.8 L MCV 92.4 MCH 30.1 MCHC 32.6 RDW 14.6 RDW Differential 46.4 H Plt Count 137 L MPV 10.3 Immature Gran % (Auto) 0.300 Neut % (Auto) 59.5 Lymph % (Auto) 27.9 [place] % (Auto) 7.6 Eos % (Auto) 4.6 Baso % (Auto) 0.1 Absolute Neuts (auto) 4.1 Absolute Lymphs (auto) 1.90 Total Counted Not Reportable Diff Path Review Reviewed Crossmatch See Detail Medical Necessity - Tobacco Use Smoking Status: Former smoker Assessment/Plan After transfusion of 2 units of PRBC hgb level danette appropriately. Besides headache no symptoms related to anemia. Will recheck hgb level later today and if stable will discharge to home. Breast feeding without difficulty. Declines prophylactic treatment for history of post depression. Discharge instructions and warnings given. Will send home on iron supplements. Instructed to keep Mephilex dressing in place until POD#5.
--- NOTE | 2018-03-21 09:18 | PCM.DC.SUM ---
Discharge Date and Diagnosis Date of Admission: 03/18/18 Date of Discharge: 03/21/18 - Primary Discharge Diagnosis S/P repeat section complicated by post operative anemia due to developement of pelvic hematoma. - Secondary Discharge Diagnosis Chronic Problems (Last Reviewed 01/07/18 @ 09:42 by Lady Branch) Previous delivery, delivered (Chronic) x 2- 53% likelihood for success, would not recommend TOLAC here in [facility] plan RLTCS if stays here. Hospital Course and Treatment Consultations 03/18/18 10:16 Consult: Anesthesia Routine Comment: Reason For Exam: LABOR Operations: - - Repeat low transverse C/S Procedures: - - SPinal anesthesia, transfusion of two units PRBC Summary of Care Provided: The patient is a 23 year old F [admitted for scheduled repeat section. delivery of live male was performed without complication. On post operative day #1 noted to have drop in hgb level. Likely due to developement of pelvic hematoma. She was transfused with two units PRBC on POD#2 and remained stable thereafter. SHe was discharged home on POD#3.] Discharge Diet: No Restrictions Discharge Activity: Return to Normal Activity, May Not Drive, May not drive while taking narcotic pain medications., May Shower Return to work on:: 05/19/18 May resume sexual activity in: 4-6 weeks Call your doctor if your incision/area has: Sudden Increased Bleeding, Increased Pain/ Swelling, Increased Redness, Foul Smelling Discharge, Swelling at the incision site Call your doctor if you observe: Fever of 101 or Higher, Inability to urinate, Inability to have a bowel movement, Using more than one pad per hour, Shortness of breath, Chest pain, Calf discomfort, Uncontrolled pain Remove Dressing in (days):: 2 Cleanse incision/area with: Soap & Water Home Medications: Medications to take at Discharge Acetaminophen [Tylenol Extra Strength] 1,000 mg PO Q8 03/08/18 Hydrocodone Bitart/Apap 5-325 [[place] 5/325] 1 - 2 tab PO Q4H PRN PRN 7 Days #30 tab 03/18/18 Ibuprofen [Motrin] 800 mg PO TID PRN PRN #30 tab 03/18/18 Oxycodone [Oxyir] 5 - 10 mg PO Q4H PRN PRN 7 Days #30 tab 03/18/18 Following Prescrptions Were Given to Patient: Hydrocodone Bitart/Apap 5-325 [[place] 5/325] 1 - 2 tab PO Q4H PRN PRN 7 Days #30 tab PRN Reason: Pain Oxycodone [Oxyir] 5 - 10 mg PO Q4H PRN PRN 7 Days #30 tab PRN Reason: Mod-Severe Pain (-08/20) Ibuprofen [Motrin] 800 mg PO TID PRN PRN #30 tab PRN Reason: pain or cramping Primary Care Physician: Care Physician,No Primary [Primary Care Provider] - Please Follow Up With: Billy Pimentel MD When: one week Disposition: Home Minutes spent on discharge:: 15 Patient Condition:: Good Medical Necessity - Tobacco Use Smoking Status: Former smoker Meaningful Use Info Meaningful Use Diagnoses (Choose all that apply): None applicable
--- NOTE | 2018-03-21 09:23 | DS.PCM_ITS ---
Discharge Date and Diagnosis Date of Admission: 03/18/18 Date of Discharge: 03/21/18 - Primary Discharge Diagnosis S/P repeat section complicated by post operative anemia due to developement of pelvic hematoma. - Secondary Discharge Diagnosis Chronic Problems (Last Reviewed 01/07/18 @ 09:42 by Lady Branch) Previous delivery, delivered (Chronic) x 2- 53% likelihood for success, would not recommend TOLAC here in [facility] plan RLTCS if stays here. Hospital Course and Treatment Consultations 03/18/18 10:16 Consult: Anesthesia Routine Comment: Reason For Exam: LABOR Operations: - - Repeat low transverse C/S Procedures: - - SPinal anesthesia, transfusion of two units PRBC Summary of Care Provided: The patient is a 23 year old F [admitted for scheduled repeat section. delivery of live male was performed without complication. On post operative day #1 noted to have drop in hgb level. Likely due to developement of pelvic hematoma. She was transfused with two units PRBC on POD# 2 and remained stable thereafter. SHe was discharged home on POD#3.] Discharge Diet: No Restrictions Discharge Activity: Return to Normal Activity, May Not Drive, May not drive while taking narcotic pain medications., May Shower Return to work on:: 05/19/18 May resume sexual activity in: 4-6 weeks Call your doctor if your incision/area has: Sudden Increased Bleeding, Increased Pain/ Swelling, Increased Redness, Foul Smelling Discharge, Swelling at the incision site Call your doctor if you observe: Fever of 101 or Higher, Inability to urinate, Inability to have a bowel movement, Using more than one pad per hour, Shortness of breath, Chest pain, Calf discomfort, Uncontrolled pain Remove Dressing in (days):: 2 Cleanse incision/area with: Soap & Water Home Medications: Medications to take at Discharge Acetaminophen [Tylenol Extra Strength] 1,000 mg PO Q8 03/08/18 Hydrocodone Bitart/Apap 5-325 [[place] 5/325] 1 - 2 tab PO Q4H PRN PRN 7 Days #30 tab 03/18/18 Ibuprofen [Motrin] 800 mg PO TID PRN PRN #30 tab 03/18/18 Oxycodone [Oxyir] 5 - 10 mg PO Q4H PRN PRN 7 Days #30 tab 03/18/18 Following Prescrptions Were Given to Patient: Hydrocodone Bitart/Apap 5-325 [[place] 5/325] 1 - 2 tab PO Q4H PRN PRN 7 Days #30 tab PRN Reason: Pain Oxycodone [Oxyir] 5 - 10 mg PO Q4H PRN PRN 7 Days #30 tab PRN Reason: Mod-Severe Pain (-08/20) Ibuprofen [Motrin] 800 mg PO TID PRN PRN #30 tab PRN Reason: pain or cramping Primary Care Physician: Care Physician,No Primary [Primary Care Provider] - Please Follow Up With: Billy Pimentel MD When: one week Disposition: Home Minutes spent on discharge:: 15 Patient Condition:: Good Medical Necessity - Tobacco Use Smoking Status: Former smoker Meaningful Use Info Meaningful Use Diagnoses (Choose all that apply): None applicable
--- NOTE | 2018-03-21 09:24 | DCINST_ITS ---
Discharge Diet: No Restrictions Discharge Activity: Return to Normal Activity, May Not Drive, May not drive while taking narcotic pain medications., May Shower Return to work on:: 05/19/18 May resume sexual activity in: 4-6 weeks Call your doctor if your incision/area has: Sudden Increased Bleeding, Increased Pain/ Swelling, Increased Redness, Foul Smelling Discharge, Swelling at the incision site Call your doctor if you observe: Fever of 101 or Higher, Inability to urinate, Inability to have a bowel movement, Using more than one pad per hour, Shortness of breath, Chest pain, Calf discomfort, Uncontrolled pain Remove Dressing in (days):: 2 Cleanse incision/area with: Soap & Water Additional Instructions: If you experience any of the following, contact your healthcare provider. * Bleeding that soaks a pad every hour for 2 hours * Fever 100.4 or higher * Unrelieved incision or abdominal pain * Swelling, redness, discharge or bleeding from your incision or episiotomy site * Your incision begins to separate * Problems urinating (including inability to urinate or burning while urinating) . * Visual changes * Severe headache * Flu-like symptoms * Pain or redness in one of both of your breasts * Pain, warmth, tenderness or swelling in your legs, especially the calf area * Frequent nausea and vomiting * Symptoms of depression or anxiety If you experience any of the following, call 911 or go to the nearest Emergency Room. * Chest pain * Problems breathing * Seizure activity * Partial or complete paralysis of a body part, slurred speech, weakness or drooping of the face, or a sudden inability to walk or hold your balance Allergies/Adverse Reactions: Allergies latex Allergy (Verified 01/07/18 09:41) Hives oxycodone [From Percocet] Adverse Reaction (Verified 01/07/18 09:41) Vomiting Medications to take at Discharge Acetaminophen [Tylenol Extra Strength] 1,000 mg PO Q8 03/08/18 Hydrocodone Bitart/Apap 5-325 [[place] 5/325] 1 - 2 tab PO Q4H PRN PRN 7 Days #30 tab 03/18/18 Ibuprofen [Motrin] 800 mg PO TID PRN PRN #30 tab 03/18/18 Ferrous Gluconate 325 mg PO BIDCM #60 tab 03/21/18 The following prescriptions were given: Hydrocodone Bitart/Apap 5-325 [[place] 5/325] 1 - 2 tab PO Q4H PRN PRN 7 Days #30 tab PRN Reason: Pain Ibuprofen [Motrin] 800 mg PO TID PRN PRN #30 tab PRN Reason: pain or cramping Ferrous Gluconate 325 mg PO BIDCM #60 tab Follow-Up: Call to make an appointment with your doctor for an incision check in 1-2 weeks. You will also need a 6 week post- follow up appointment. Please Follow Up With: Billy Pimentel MD When: one week Primary Care Physician: Care Physician,No Primary [Primary Care Provider] - Proposed Discharge Date: 03/21/18
[2018-03-21 12:22] LABS: Hematocrit 22.5 % (37-47); Hemoglobin 7.1 g/dl (12.0-15.0); Mean Corp Hgb Conc 31.6 g/gl (32-36); Mean Corpuscular Hgb 28.6 pg (27.0-32.0); Mean Corpuscular Volume 90.7 fL (81-99); Mean Platelet Vol. 10.3 fl (6.2-12.0); Platelet Count 166 K/mm3 (150-450); RBC Distribution Width CV 14.7 % (11.6-14.6); RBC Distribution Width SD 48.1 fl (35.1-43.9); Red Blood Count 2.48 M/mm3 (4.2-5.4)
[2018-03-21 12:23] LABS: Scan Indicated on CBC? Y/N NO
--- NOTE | 2018-03-21 12:25 | NURSING ---
Dr Pimentel notified in person of pts c/o headache not relieved by [place] or supine position. Plan is for Dr Pimentel to order fiorocet
[2018-03-21] MEDS: Acetaminophen/Butalbital/Caffe 1 Tablet 2 TABLET PO (13:03)
[2018-03-21 13:15] VITALS: BP 129/80; PULSE 108; RESP 16; TEMP 36.5
== END 2018-03-21 13:55 | disposition home or self-care (01) | DRG 370 ==
PROVIDERS: Admitting Provider Obstetrics & Gynecology; Visit Provider Obstetrics & Gynecology
PROC: 10D00Z1 Extraction of Products of Conception, Low, Open Approach (ICD-10-PCS; CPT 59514; principal; 2018-03-18 11:45)
DX: O34.211 Maternal care for low transverse scar from previous cesarean delivery (principal); O99.02 Anemia complicating childbirth; D62 Acute posthemorrhagic anemia; O71.5 Other obstetric injury to pelvic organs; Z3A.39 39 weeks gestation of pregnancy; Z37.0 Single live birth; O99.334 Smoking (tobacco) complicating childbirth; Z91.040 Latex allergy status
CPT/HCPCS: 36415; 85025; 85027; 85610; 85730; 86850; 86900; 86920; 99218; J7030; J7120; P9016; A4216; G0378; J2405

== ENCOUNTER 2018-03-26 12:00 | Outpatient (CLI) | payer MEDICAID, SELFPAY | END 2018-03-26 13:00 | disposition home or self-care (01) | LOC: WPOUT 12:10 → WP 12:11 | PROVIDERS: Visit Provider Pediatrics | DX: Z39.1 Encounter for care and examination of lactating mother (principal) | CPT/HCPCS: 96152; A4216 ==

== ENCOUNTER 2018-09-20 14:49 | Emergency (ER) | payer MEDICAID, SELFPAY ==
[2018-09-20 14:53] VITALS: BP 106/91; PULSE 130; RESP 20; TEMP 37.2; O2SAT 97; BMI 34.4
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
[2018-09-20] MEDS: Acetaminophen 500 MG Tablet 1000 MG PO (15:28)
[2018-09-20 15:30] VITALS: PULSE 107; RESP 16; O2SAT 100
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
== END 2018-09-20 15:39 | disposition home or self-care (01) ==
LOC: ED 15:34
PROVIDERS: Emergency Provider Emergency Medicine
DX: S00.03XA Contusion of scalp, initial encounter (principal); S10.91XA Abrasion of unspecified part of neck, initial encounter; Y04.2XXA Assault by strike against or bumped into by another person, initial encounter; Y93.9 Activity, unspecified; Y92.9 Unspecified place or not applicable; Y99.9 Unspecified external cause status; N83.201 Unspecified ovarian cyst, right side
CPT/HCPCS: 99284

== ENCOUNTER 2018-09-24 07:43 | Day surgery (SDC) | payer MEDICAID, SELFPAY ==
--- NOTE | 2018-09-18 09:26 | EKG12_ITS ---
Test Reason : PRE OP Blood Pressure : / mmHG Vent. Rate : 077 BPM Atrial Rate : 077 BPM P-R Int : 146 ms QRS Dur : 098 ms QT Int : 362 ms P-R-T Axes : 019 080 042 degrees QTc Int : 409 ms Normal sinus rhythm Normal ECG Confirmed by RIOS SIMPSON ([id number]), editor farm journal ABDI GERMAIN ([id number] on 09/22/2018 2:35:29 PM Referred By: Billy Pimentel Confirmed By:RIOS SIMPSON
[2018-09-18 10:33] LABS: Hematocrit 40.4 % (37-47); Hemoglobin 12.8 g/dl (12.0-15.0); Mean Corp Hgb Conc 31.7 g/gl (32-36); Mean Corpuscular Volume 91.6 fL (81-99); Mean Platelet Vol. 10.8 fl (6.2-12.0); Platelet Count 163 K/mm3 (150-450); RBC Distribution Width CV 13.3 % (11.6-14.6); RBC Distribution Width SD 44.3 fl (35.1-43.9); Red Blood Count 4.41 M/mm3 (4.2-5.4)
[2018-09-18 10:36] LABS: Scan Indicated on CBC? Y/N NO
[2018-09-18 11:07] LABS: Pregnancy, Serum, hCG Quali. NEGATIVE Negative (0-9 Nonpreg)
[2018-09-18 11:10] LABS: AST(SGOT) 11 U/L (15-37); Alanine Aminotransfer ALT/SGPT 19 U/L (13-56); Albumin, Serum 3.6 g/dL (3.2-5.0); Alkaline Phosphatase 84 U/L (45-117); Bilirubin, Direct 0.08 mg/dL (0.00-0.30); Protein, Total 7.6 g/dL (6.4-8.2)
[2018-09-19 10:11] LABS: Anion Gap 7 (5-15); BUN 16 mg/dL (7-18); BUN/Creat Ratio 22.3 RATIO (10-20); Calcium,Total 8.6 mg/dL (8.5-10.1); Chloride 106 mmol/L (98-107); Creatinine, Serum 0.72 mg/dL (0.55-1.02); EST Glomerular Filtration Rate 107 mL/min (>60); Est Glom Filt Rate - Afr Amer 130 mL/min (>60); Glucose 87 mg/dL (74-106); Potassium 4.1 mmol/L (3.5-5.1); Sodium Level 138 mmol/L (136-145)
--- NOTE | 2018-09-24 | MISC_PTH ---
PATIENT: ANTHONY GOMEZ LOC: [facility] [place] U#:[id number] AGE/SX: 23/F ROOM: RE09/24/[address]: Dr. Billy Pimentel MD : [id number] BED: DIS: 09/24/2018 SPEC #: [id number] RECD: 09/24/18 14:55 STATUS: MANDY RERosario #: [id number] JEISON: 09/24/18 00:[address]: Billy Pimentel DEPT: SURGICAL PATHOLOGY RECD BY: Austen Degroot ENTERED: 09/24/18 14:56 SP TYPE: [facility] [place]: No Primary Care Phys Tissues: Pelvis, NOS Procedures: Surgery Specimen Level IV HEADER OPERATION: Laparoscopic, right pelvic wall cyst evacuation PRE-OP DIAGNOSIS: Complex right ovaria cyst, pelvic pain TISSUE SUBMITTED: Right pelvic wall cyst contents MICROSCOPIC DIAGNOSIS Right pelvic wall cyst contents, removal: Benign fibrous tissue. Amorphous fibrinoid material and organizing blood clots. No evidence of malignancy. AM:jonatan 09/25/18 COMMENT This specimen primarily consists of fibrinoid material and blood clot. Clinical correlation is suggested. MICROSCOPIC DESCRIPTION Slides are reviewed. GROSS DESCRIPTION Received is one container labeled with the patient name and designated right pelvic wall cyst contents. The specimen consists of multiple irregular fragments of red-brown soft tissue that in aggregate measure 2.5 x 2 x 0.2 cm. The specimen is submitted in its entirety in one cassette. / AM:jonatan 09/24/18 TC: 5 CPT: 71814
[2018-09-24 08:14] VITALS: BP 107/68; PULSE 67; RESP 14; TEMP 37.1; O2SAT 97; BMI 35.0
--- NOTE | 2018-09-24 09:44 | DCINST_ITS ---
You will use the following diet at home:: No restrictions Discharge Activity: Return to Normal Activity, May Drive - If no significant pa in, May Not Drive, May not drive while taking narcotic pain medications., May Shower Return to work on:: 10/01/18 May shower in (days): 0 May resume sexual activity in: 1-2 weeks Call your doctor if your incision/area has: Sudden Increased Bleeding, Increased Pain/ Swelling, Increased Redness, Foul Smelling Discharge, Swelling at the incision site Call your doctor if you observe: Fever of 101 or Higher, Inability to urinate, Inability to have a bowel movement, Using more than one pad per hour, Shortness of breath, Chest pain, Calf discomfort, Uncontrolled pain Remove Dressing in (days):: 2 Cleanse incision/area with: Soap & Water Allergies/Adverse Reactions: Allergies latex Allergy (Verified 09/24/18 08:12) Hives tramadol Allergy (Verified 09/24/18 08:12) Chest tightness Medications to take at Discharge Ibuprofen 600 mg PO 4X/DAY #30 tab 09/24/18 Oxycodone [Oxyir] 5 mg PO Q4H PRN PRN 7 Days #20 tab 09/24/18 The following prescriptions were given: Oxycodone [Oxyir] 5 mg PO Q4H PRN PRN 7 Days #20 tab PRN Reason: Severe Pain (6-10/10) Ibuprofen 600 mg PO 4X/DAY #30 tab Orders to be completed after discharge: Type & Screen Time Frame: 09/18/18, Location: None Selected 12 Lead EKG [[facility]] Time Frame: 09/18/18, Location: None Selected ,Urine Time Frame: 09/24/18, Location: Laboratory Primary Care Physician: Care Physician,No Primary [Primary Care Provider] - Test Results: Test results from this visit will be discussed in further detail at your follow- up appointment, if applicable. Please Follow Up With: Billy Pimentel MD When: one week Proposed Discharge Date: 09/24/18
--- NOTE | 2018-09-24 09:44 | PCM.OPRPT ---
Report of Operation Date of Procedure: 09/24/18 Pre-Operative Diagnosis: Complex Right Ovarian Cyst, Chronic Pelvic Pain Post-Operative Diagnosis: Right pelvic sidewall hematoma, left fallopian tube adhesions Surgery/Procedure Performed:: Exploratory laparoscopy, evacuation of right pelvic sidewall hematoma, lysis of adhesions Description of Surgical Findings:: Normal appearing uterus with adhesions of the bladder to the lower anterior uterine segment. Normal appearing ovaries bilaterally. Left fallopian tube adherent to the left sidewall. 4 cm right resolving hematoma located just inferior to the right round ligament at the right pelvic sidewall. director federal: Estefani Gomes Type of Anesthesia:: General Anesthesiologist: Darryl Sales Special Medications: none Specimen's removed: Partial contents of right pelvic sidewall hematoma Drains: none Estimated Blood Loss (mL): 10cc Fluids Replaced: 1000cc LR Description of Procedure: Lisbeth was taken to the OR with IV running. SCDs were in place and operational throughout the case. She was given two grams of Cefotetan intravenously for surgical prophylaxis. General anesthesia was then introduced without complication. She was then prepped and draped in the dorsal lithotomy position. A red rubber catheter was used to drain the bladder. A [employer] uterine manipulator was placed. Attention was then directed to the abdomen. A 5mm vertical incision was made in the lower base of the umbilicus. The underlying subcutaneous tissue was dissect down to the level of fascia using blunt dissection with a Aida clamp. The abdominal wall was then elevated and a Veress needle was placed through the umbilical defect into the abdominal cavity. The abdomen was then inflated with CO2 gas to a pressure of 15 Torr. The Veress needle was removed and replaced with a 5mm laparoscopic trocar and sleeve. The trocar was removed and replaced by the laparoscope. A thorough survey of the abdomen and pelvis was performed, Findings were as mentioned above. Two 5mm laparoscopic ports were then placed one on the left and one on the right at the level of the umbilicus lateral to the inferior epigastric vessels. Hemostasis was excellent after port placement. The peritoneum over the right pelvic sidewall hematoma/mass was incised with the endoshears creating a 3cm rent in the superior portion of the right sidewall heamatoma. The contents were removed with aid of graspers and irrigation. A sampling of the contents were sent to pathology. Once it appeared the defect had been evacuated, Sowmya was placed in the defect. The left fallopian tube adhesions were then excised with the aid of the endoshears and the fallopian tube was covered with Sowmya. A majority of the irrigation fluid was removed. With hemostasis assured the lateral laparoscopic ports were then removed with good hemostasis noted. The CO2 gas was evacuated from the abdomen and the umbilical port was removed. The skin incisions were closed with 4-0 Monocryl suture. The skin incisions were then injected with 0.5% Marcaine. The uterine manipulator was removed. She was reversed from anesthesia and taken to the recovery room in stable condition. SPonge, needle, and instrument counts were correct. Grafts/Implants Used: Sowmya - Complications none - Admit VTE Documentation VTE Present on Admission: No VTE Mechan Device Prophylaxis: SCD's VTE Pharm Prophylaxis ordered?: No
--- NOTE | 2018-09-24 09:51 | OP.PCM_ITS ---
Report of Operation Date of Procedure: 09/24/18 Pre-Operative Diagnosis: Complex Right Ovarian Cyst, Chronic Pelvic Pain Post-Operative Diagnosis: Right pelvic sidewall hematoma, left fallopian tube adhesions Surgery/Procedure Performed:: Exploratory laparoscopy, evacuation of right pelvic sidewall hematoma, lysis of adhesions Description of Surgical Findings:: Normal appearing uterus with adhesions of the bladder to the lower anterior uterine segment. Normal appearing ovaries bilaterally. Left fallopian tube adherent to the left sidewall. 4 cm right resolving hematoma located just inferior to the right round ligament at the right pelvic sidewall. physicist nuclear: Estefani Gomes Type of Anesthesia:: General Anesthesiologist: Darryl Sales Special Medications: none Specimen's removed: Partial contents of right pelvic sidewall hematoma Drains: none Estimated Blood Loss (mL): 10cc Fluids Replaced: 1000cc LR Description of Procedure: Lisbeth was taken to the OR with IV running. SCDs were in place and operational throughout the case. She was given two grams of Cefotetan intravenously for surgical prophylaxis. General anesthesia was then introduced without complication. She was then prepped and draped in the dorsal lithotomy position. A red rubber catheter was used to drain the bladder. A [employer] uterine manipulator was placed. Attention was then directed to the abdomen. A 5mm vertical incision was made in the lower base of the umbilicus. The underlying subcutaneous tissue was dissect down to the level of fascia using blunt dissection with a Aida clamp. The abdominal wall was then elevated and a Veress needle was placed through the umbilical defect into the abdominal cavity. The abdomen was then inflated with CO2 gas to a pressure of 15 Torr. The Veress needle was removed and replaced with a 5mm laparoscopic trocar and sleeve. The trocar was removed and replaced by the laparoscope. A thorough survey of the abdomen and pelvis was performed, Findings were as mentioned above . Two 5mm laparoscopic ports were then placed one on the left and one on the right at the level of the umbilicus lateral to the inferior epigastric vessels. Hemostasis was excellent after port placement. The peritoneum over the right pelvic sidewall hematoma/mass was incised with the endoshears creating a 3cm rent in the superior portion of the right sidewall heamatoma. The contents were removed with aid of graspers and irrigation. A sampling of the contents were sent to pathology. Once it appeared the defect had been evacuated, Sowmya was placed in the defect. The left fallopian tube adhesions were then excised with the aid of the endoshears and the fallopian tube was covered with Sowmya. A majority of the irrigation fluid was removed. With hemostasis assured the lateral laparoscopic ports were then removed with good hemostasis noted. The CO2 gas was evacuated from the abdomen and the umbilical port was removed. The skin incisions were closed with 4-0 Monocryl suture. The skin incisions were then injected with 0.5% Marcaine. The uterine manipulator was removed. She was reversed from anesthesia and taken to the recovery room in stable condition. SPonge, needle, and instrument counts were correct. Grafts/Implants Used: Sowmya - Complications none - Admit VTE Documentation VTE Present on Admission: No VTE Mechan Device Prophylaxis: SCD's VTE Pharm Prophylaxis ordered?: No
[2018-09-24 10:12] LABS: Internal QC Validated? YES +Cl - CLEAR BKGD; Pregnancy, Urine Negative Negative
[2018-09-24] MEDS: Bupivacaine 0.5% PF 10 ML VIAL (11:33)
[2018-09-24 11:52] VITALS: BP 107/68; BP 114/62; PULSE 61; RESP 16; TEMP 36.8; O2SAT 95
[2018-09-24 12:00] VITALS: BP 107/68; PULSE 76; RESP 16; TEMP 36.2; O2SAT 96
[2018-09-24 13:20] VITALS: BP 107/68; BP 113/82; PULSE 68; RESP 16; TEMP 36.7; O2SAT 100
== END 2018-09-24 13:23 | disposition home or self-care (01) ==
LOC: SDC 07:45 → AC 07:45
PROVIDERS: Anesthesiology; Referring Provider Obstetrics & Gynecology; Visit Provider Obstetrics & Gynecology
PROC: (CPT 22902; principal; 2018-09-24 09:40)
DX: N94.89 Other specified conditions associated with female genital organs and menstrual cycle (principal); N73.6 Female pelvic peritoneal adhesions (postinfective); G89.29 Other chronic pain; R10.2 Pelvic and perineal pain; Z87.891 Personal history of nicotine dependence
CPT/HCPCS: 00730; 22902; 58662; 80048; 80076; 81025; 84703; 85027; 85610; 85730; 86850; 86900; 88305; 93005; J7120; J2405

== ENCOUNTER → 2019-02-06 15:17 | Outpatient (CLI) | payer MEDICAID, SELFPAY ==
[2019-02-06 17:37] LABS: Free T3 2.9 pg/mL (2.18-3.98); T4 Free Direct 0.95 ng/dL (0.76-1.46)
[2019-02-06 19:16] LABS: Chlamydia Trachomatis by PCR Negative (Negative); Neisserai gonorrhoeae by PCR Negative (Negative); Probe Check PASS; Sample Adequacy Control PASS; Specimen Processing Control PASS
== END ==
PROVIDERS: Visit Provider Obstetrics & Gynecology
DX: Z11.3 Encounter for screening for infections with a predominantly sexual mode of transmission (principal); N92.6 Irregular menstruation, unspecified
CPT/HCPCS: 36415; 84439; 84443; 84481; 87491; 87591

== ENCOUNTER 2019-05-26 12:44 | Emergency (ER) | payer MEDICAID, SELFPAY ==
[2019-05-26 12:45] VITALS: BP 120/80; PULSE 87; RESP 14; TEMP 36.7; O2SAT 98; BMI 34.9
--- NOTE | 2019-05-26 12:59 | ED.DCSUM_ITS ---
History of Present Illness Chief Complaint: Numb/Ting Detail of Chief Complaint: Bilateral upper extremity numbness, perioral numbness, chest pain Informant: Patient Onset: Today Context: Sudden Onset Timing: Continuous Quality: Tingling, chest pain, headache Location: Previously documented Current Severity: Moderate Maximum Severity: Severe Worsened by: Light sensitivity Relieved by: Nothing Associated Symptoms: No other symptoms Narrative: Patient is a 24-year-old female on no medication who presents with bilateral upper extremity numbness, perioral numbness, left-sided headache with photophobia and neck pain. She also reports chest pain. She denies shortness of breath, difficulty breathing or pleuritic chest pain. There is no history of PE or DVT. She denies leg pain, swelling or discoloration. She denies nausea, vomiting or diarrhea. She denies dysuria, frequency, urgency or hematuria. She is on her menstrual cycle; she states her menstrual cycle is normal Prior similar symptoms: No Recent Illness/Hospitalization: No - Past Medical History (1) Headache in Status: Acute Comment: normal bps, ordered phenergan, recommend optometry evaluation (2) Tobacco use complicating Status: Acute Comment: encouraged cessation Past Medical History - Allergies and Home Meds Allergies/Adverse Reactions: Allergies latex Allergy (Verified 05/26/19 12:47) Hives tramadol Allergy (Verified 05/26/19 12:47) Chest tightness Primary Care Physician: Care Physician,No Primary [Primary Care Provider] - Surgical History: - - section x3 Lives: With Family Smoking Status: Current some day smoker Drugs: None Review of Systems General: Denies: Chills, Fever, Malaise, Subjective, Sweats, Weight loss, - Eyes: Reports: - - Photophobia. Denies: Visual changes - bilaterally, Blurred Vision - bilaterally, Diplopia ENT: Denies: Bilateral ear pain, Rhinorrhea, Sore throat Cardiovascular: Reports: Chest pain. Denies: Palpitations, Heart racing Respiratory: Denies: Dyspnea, Cough, Dyspnea on exertion Gastrointestinal: Denies: Abdominal pain, Nausea, Vomiting, Diarrhea, Melena, Hematochezia Genitourinary: Denies: Dysuria, Hematuria, Frequency Musculoskeletal: Denies: Myalgias, Arthralgias, Neck pain, Back pain, Swelling, Extremity Pain Skin: Denies: Rash, Wounds Neurological: Reports: Headache, Parasthesia, Numbness. Denies: Weakness Psych: Denies: Depression, Anxiety Hematologic: Denies: Easy bruising, Easy bleeding Allergy: Denies: Uticaria, Swelling of the mouth Physical Exam Vital Signs/Narrative: Vital Signs Temp Pulse Resp BP Pulse Ox 05/26/19 12:45 98.1 F 87 14 120/80 98 Inital Vital Signs reviewed: Yes General: Well nourished, Well developed, No Acute Distress, - - Patient is crying. Head: Normocephalic, Atraumatic. Negative for: Trauma, Tenderness Eyes: Perrl, EOMI. Negative for: Pale conjunctiva, Scleral icterus, - - Funduscopic exam reveals normal cup-to-disc ratio. There is no papilledema. Patient does not demonstrate photophobia. ENT: Moist mucous membranes, TM's clear, -. Negative for: Sinus tenderness Neck: Supple, Nontender. Negative for: No lymphadenopathy, No JVD, - Cardiovascular: Regular rate, Regular rhythm, No murmurs, Normal S1, Normal S2 Respiratory: No distress, CTA bilaterally, Chest nontender Abdomen: Soft, Nontender, Nondistended, Normal bowel sounds Back: Nontender, Normal Inspection Extremities: Nontender, No edema Skin: Normal color, No rash, No Trauma. Negative for: Cyanosis, Diaphoresis, Jaundice Neurological: Alert, Oriented x3, Cranial nerves II-XII grossly intact, Normal Strength, Normal Sensation, Normal DTR - 2+ upper and lower extremity and symmetric Psychological: Tearful, - - No psychomotor skills. Flat affect. Diagnostic/Tx/Re-eval Laboratory Results 05/26/19 05/26/19 13:06 13:06 WBC 5.8 RBC 4.55 Hgb 13.5 Hct 41.6 MCV 91.4 MCH 29.7 MCHC 32.5 RDW Std Deviation 41.9 RDW Coeff of Loree 12.5 Plt Count 170 MPV 10.4 Immature Gran % (Auto) 0.200 Neut % (Auto) 58.0 Lymph % (Auto) 31.3 [place] % (Auto) 6.7 Eos % (Auto) 3.1 Baso % (Auto) 0.7 Absolute Neuts (auto) 3.4 Absolute Lymphs (auto) 1.81 Absolute Nucleated RBC 0.00 Nucleated RBC % 0 Sodium 140 Potassium 3.8 Chloride 109 H Carbon Dioxide 27.0 Anion Gap 4 L BUN 10 Creatinine 1.01 Estim Creat Clear Calc 77.95 Est GFR (MDRD) Af Amer 87 Est GFR (MDRD) Non-Af 72 BUN/Creatinine Ratio 9.9 L Glucose 89 Calcium 9.2 - Medical Decision Making With complaint of perioral numbness bilateral numbness positive's [place] sign patient is hyperventilating for no reason. Will obtain basic metabolic panel to assess for electrolyte abnormality and renal function. CBC to evaluate for anemia. Her headache was treated with 25 mg of Benadryl, 10 monos Reglan and 15 mg of Toradol IV push. Patient laboratory tests were unremarkable. When I entered the room to inform her she was asleep. She had been awake and sleep. Upon awakening she says she has a severe headache. At this point plan is to discharge her to home. She was informed the numbness around her lips and extremities is not from a stroke. That was her main concern and her father's main concern according to the patient. ED Disposition - Plan for ED Patient: Disposition: Home or Assisted Living Diagnosis: Headache, Hyperventilation, Paresthesia and pain of both upper extremities Instructions: Hyperventilation Syndrome, HEADACHE, Unspecified, Paraesthesias Referrals: Care Physician,No Primary [Primary Care Provider] - Additional Instructions: Follow-up with the doctor that you were assigned to by your insurance carrier.
[2019-05-26 13:14] LABS: Absolute Lymphocyte Count 1.81 X10^3/uL (0.83-4.51); Absolute Neutrophil Count 3.4 X10^3/uL (2.0-7.7); Basophil# 0.04 X10^3/uL; Basophil% 0.7 % (0-1); Eosinophil# 0.18 X10^3/uL; Eosinophils% 3.1 % (0-5); Hematocrit 41.6 % (37-47); Hemoglobin 13.5 g/dL (12.0-15.0); Lymphocyte # 1.81 X10^3/ul (4.0); Lymphocyte % 31.3 % (19-41); Mean Corp Hgb Conc 32.5 g/dL (32-36); Mean Corpuscular Hgb 29.7 pg (27.0-32.0); Mean Corpuscular Volume 91.4 fL (81-99); Mean Platelet Vol. 10.4 fl (6.2-12.0); Monocyte# 0.39 X10^3/uL; Monocyte% 6.7 % (0-10); NRBC Flagged by Analyzer 0 % (0-5); Neutrophil # 3.36 X10^3/uL (2.7-7.7); Platelet Count 170 K/mm3 (150-450); RBC Distribution Width CV 12.5 % (11.6-14.6); RBC Distribution Width SD 41.9 fl (35.1-43.9); Red Blood Count 4.55 M/mm3 (4.2-5.4); White Blood Count 5.8 K/mm3 (4.4-11.0)
[2019-05-26] MEDS: Ketorolac 30 MG/ML Syringe 15 MG IV (13:15)
[2019-05-26] MEDS: Metoclopramide 10 MG/2 ML Vial IV (13:15)
[2019-05-26] MEDS: DiphenhydrAMINE 50 MG/ML Syringe 25 MG IV (13:15)
[2019-05-26 13:25] LABS: Anion Gap 4 (5-15); BUN 10 mg/dL (7-18); BUN/Creat Ratio 9.9 RATIO (10-20); Calcium,Total 9.2 mg/dL (8.5-10.1); Chloride 109 mmol/L (98-107); Creatinine, Serum 1.01 mg/dL (0.55-1.02); EST Glomerular Filtration Rate 72 mL/min (>60); Est Glom Filt Rate - Afr Amer 87 mL/min (>60); Estimated Creatinine Clearance 77.95 ml/min; Glucose 89 mg/dL (74-106); Potassium 3.8 mmol/L (3.5-5.1); Sodium Level 140 mmol/L (136-145)
[2019-05-26 14:51] VITALS: BP 108/74; PULSE 62; RESP 15; O2SAT 98
== END 2019-05-26 14:55 | disposition home or self-care (01) ==
PROVIDERS: Emergency Provider Emergency Medicine
DX: R51 Headache (principal); R06.4 Hyperventilation; R20.2 Paresthesia of skin; H53.149 Visual discomfort, unspecified; M54.2 Cervicalgia; R07.9 Chest pain, unspecified; F17.200 Nicotine dependence, unspecified, uncomplicated
CPT/HCPCS: 80048; 85025; 96374; 96375; 99284; A4216

== ENCOUNTER 2019-11-08 18:37 | Emergency (ER) | payer MEDICAID, SELFPAY ==
[2019-11-08 18:38] VITALS: BP 135/72; PULSE 105; RESP 16; TEMP 36.6; O2SAT 98; BMI 34.9
--- NOTE | 2019-11-08 19:19 | ED.VISSUMM ---
- ER Visit Summary Date of Service: 11/08/19 Chief Complaint: Redness and swelling over lower abdominal incision History of Present Illness: The patient is a 24 F who presents with redness and swelling to her lower abdomen that is been getting worse over the past 3 days. The area begins at the midpoint of her incision. Patient had her in March 2018. Patient has not had any problems since the . Patient states that today it started draining some serous drainage. Patient denies any fevers but admits to subjective chills. Patient admits to nausea but denies any vomiting. Patient describes her pain as stabbing. Patient states pain is worse when she does any lifting. Physical Examination: Vital signs are stable. Patient is afebrile. Patient is in no acute distress. Oral mucosa is pink and moist. Neck is supple. Trachea is midline. There is no JVD. Heart was regular rate and rhythm. Lungs are clear and equal bilaterally. Abdomen is soft. Bowel sounds are normal. There is mild tenderness over the lower abdomen. There is some serous drainage. There is surrounding erythema. There is no fluctuance or abscess formation. There is no rebound or guarding noted. Cranial nerves II through XII are intact. There are no focal motor or sensory deficits noted. Emergency Department Course and Treatment: Patient was given a prescription for Keflex. Patient was instructed to follow-up with her primary care physician or INVENTORY AND PRICING ASSOCIATE in 5 to 7 days. Patient was instructed to use warm compresses to the area. Patient was instructed to take Tylenol or ibuprofen as needed for pain. Patient understood and was agreeable with the plan. All questions were answered. Disposition: Discharge home Impression: Lower abdominal cellulitis This note was generated with [employer] dictation software. It may contain incorrect words, spelling, and punctuation that were not noted in review of the chart prior to signing ED Disposition - Plan for ED Patient: Disposition: Home or Assisted Living Diagnosis: Cellulitis of abdominal wall Instructions: Cellulitis Prescriptions: Cephalexin [Keflex] 500 mg PO Q6 #40 cap Prescription Printed Referrals: Care Physician,No Primary [Primary Care Provider] - 5-7 Days
== END 2019-11-08 20:02 | disposition home or self-care (01) ==
PROVIDERS: Emergency Provider Emergency Medicine
DX: L03.311 Cellulitis of abdominal wall (principal); E66.9 Obesity, unspecified; F17.200 Nicotine dependence, unspecified, uncomplicated
CPT/HCPCS: 99282

== ENCOUNTER 2020-07-03 12:38 | Emergency (ER) | payer MEDICAID, SELFPAY ==
[2020-07-03 12:39] VITALS: BP 123/70; PULSE 93; RESP 14; TEMP 36.5; O2SAT 97; BMI 35.9
--- NOTE | 2020-07-03 12:48 | RAD_ITS ---
STUDY: X-RAY - LEFT ANKLE REASON FOR EXAM: Female, 25 years old. no injury, lateral pain and swelling TECHNIQUE: 3 view(s) of the ankle. COMPARISON: None. FINDINGS: Normal visualized distal tibia and fibula. Chronic corticated avulsion fracture the lateral malleolus the fibula. Normal tibiotalar articulation and ankle mortise. Normal visualized talus and calcaneus. Tiny plantar calcaneal enthesophyte. The visualized subtalar, talonavicular, calcaneocuboid and tarsal articulations are normal. The soft tissue structures are unremarkable. RAD/Ankle min 3 Views IMPRESSION: Normal x-ray examination of the ankle. Electronically Signed: Ion Andre MD at 13:10 EDT Tel , Service support ,
--- NOTE | 2020-07-03 12:48 | ED.VIS.GEN ---
History of Present Illness Chief Complaint: Lower Extremity Injury Informant: Patient Onset: Today Narrative: Patient states that when she woke this morning she had pain lateral aspect of the left ankle extending down onto the proximal foot. She denies any known trauma or excessive repetitive motions. She denies any redness or swelling. No history of inflammatory arthropathies. No home treatments Past Medical History - Allergies and Home Meds Allergies/Adverse Reactions: Allergies latex Allergy (Verified 07/03/20 12:41) Hives tramadol Allergy (Verified 07/03/20 12:41) Chest tightness Primary Care Physician: Care Physician,No Primary [Primary Care Provider] - Surgical History: - - section x3 Smoking Status: Current every day smoker Review of Systems General: Denies: Chills, Fever, Sweats Eyes: Denies: Visual changes - bilaterally, Diplopia ENT: Denies: Rhinorrhea, Sore throat Cardiovascular: Denies: Chest pain, Palpitations Respiratory: Denies: Dyspnea, Cough, Dyspnea on exertion Gastrointestinal: Denies: Abdominal pain, Nausea, Vomiting, Diarrhea, Melena, Hematochezia Genitourinary: Denies: Dysuria, Hematuria, Frequency Musculoskeletal: Reports: Extremity Pain. Denies: Back pain, Swelling Skin: Denies: Rash, Wounds Neurological: Denies: Headache, Weakness, Numbness Physical Exam Vital Signs/Narrative: Vital Signs Temp Pulse Resp BP Pulse Ox 07/03/20 12:39 97.7 F L 93 14 123/70 H 97 Inital Vital Signs reviewed: Yes General: Well nourished, Well developed, Obese, No Acute Distress Head: Normocephalic, Atraumatic Eyes: Perrl, EOMI ENT: Moist mucous membranes, No rhinorrhea Neck: Supple, Nontender Cardiovascular: Regular rate, Regular rhythm, No murmurs Respiratory: No distress, CTA bilaterally, Chest nontender Abdomen: Soft, Nontender, Nondistended, Normal bowel sounds Back: Nontender, Normal Inspection Extremities: No edema, Tenderness - Tender to palpation the posterior to the lateral malleolus and inferior to the lateral malleolus. There is no welling or erythema. No increased warmth. Pain is exacerbated with plantar/inversion motion. It is better with dorsiflexion and eversion. Skin: Normal color, No rash Neurological: Alert, Oriented x3, Cranial nerves II-XII grossly intact, Normal Strength, Normal Sensation Psychological: Normal affect, Normal Mood Diagnostic/Tx/Re-eval Clinical Impression(s) from Imaging Studies Ankle X-Ray 07/03/20 12:48 IMPRESSION: Normal x-ray examination of the ankle. Electronically Signed: Ion Andre MD at 13:10 EDT Tel , Service support , - Medical Decision Making X-rays of the ankle were negative. I suspect that this is a tendinitis. We will place her in an Aircast and have her use anti-inflammatories. She should follow-up podiatry if not improving. ED Disposition - Plan for ED Patient: Disposition: Home or Assisted Living Diagnosis: Left ankle tendonitis Instructions: Treating Tendonitis of the Foot Prescriptions: Naproxen [Naprosyn] 500 mg PO BID #20 tab Prescription Printed Referrals: Tucker Barreto DPM [STAFF PHYSICIAN] - 1 Week if not improving
== END 2020-07-03 13:46 | disposition home or self-care (01) ==
LOC: ED 13:16
PROVIDERS: Emergency Provider Emergency Medicine
DX: M77.52 Other enthesopathy of left foot and ankle (principal); F17.200 Nicotine dependence, unspecified, uncomplicated
CPT/HCPCS: 73610; 99283

== ENCOUNTER 2020-08-08 11:09 | Emergency (ER) | payer MEDICAID, SELFPAY ==
[2020-08-08 11:11] VITALS: BP 122/71; PULSE 81; RESP 16; TEMP 36.3; O2SAT 98; BMI 36.6
--- NOTE | 2020-08-08 12:06 | ED.DCSUM_ITS ---
- ER Visit Summary Date of Service: 08/08/20 Chief Complaint: Vaginal bleeding History of Present Illness: The patient is a 25 F who presents with heavy vaginal bleeding that began yesterday. Patient states that she is currently on her menstrual period but this is heavier than usual. Patient states that she is going through approximately 1 pad per hour. Patient states she is passing clots. Patient admits to some lower abdominal cramping. Patient states her last menstrual period was 1 month ago and was normal. Patient denies any dysuria or hematuria. Patient denies any fevers or chills. Patient denies any nausea or vomiting. Physical Examination: Vital signs are stable. Patient is afebrile. Patient is in no acute distress. Oral mucosa is pink and moist. Neck is supple. Trachea is midline. There is no JVD noted. Heart was regular rate and rhythm. Lungs are clear and equal bilaterally. Abdomen is soft. Bowel sounds are normal. There is mild suprapubic tenderness. There is no rebound or guarding noted. Skin is warm dry. Cranial nerves II through XII are intact. There are no focal motor or sensory deficits noted. Extremities are intact. There is no calf tenderness or edema. Test Results: CBC was within normal limits. Metabolic profile was normal. PT with INR and PTT were normal. Urinalysis does not show any evidence of urinary tract infection. Serum hCG was negative. Emergency Department Course and Treatment: Patient is feeling better on reevaluation. Patient was advised of her results. Patient was instructed to follow-up with her UNDERWRITER in 3 to 5 days. Patient understood and was agreeable with the plan. All questions were answered. Disposition: Discharge home Impression: Menorrhagia This note was generated with [employer] dictation software. It may contain incorrect words, spelling, and punctuation that were not noted in review of the chart prior to signing ED Disposition - Plan for ED Patient: Disposition: Home or Assisted Living Diagnosis: Menorrhagia Instructions: ED Bleeding Menstrual Heavy Referrals: Billy Pimentel MD [STAFF PHYSICIAN] - 5-7 Days
[2020-08-08 12:27] LABS: Absolute Lymphocyte Count 1.35 X10^3/uL (0.83-4.51); Basophil# 0.05 X10^3/uL; Basophil% 0.8 % (0-1); Eosinophil# 0.21 X10^3/uL; Eosinophils% 3.5 % (0-5); Hematocrit 38.7 % (37-47); Hemoglobin 12.3 g/dL (12.0-15.0); Lymphocyte # 1.35 X10^3/ul (4.0); Lymphocyte % 22.7 % (19-41); Mean Corp Hgb Conc 31.8 g/dL (32-36); Mean Corpuscular Volume 91.3 fL (81-99); Mean Platelet Vol. 10.5 fl (6.2-12.0); Monocyte# 0.35 X10^3/uL; Monocyte% 5.9 % (0-10); NRBC Flagged by Analyzer 0 % (0-5); Neutrophil # 3.98 X10^3/uL (2.7-7.7); Neutrophil % 66.9 % (47-70); Platelet Count 192 K/mm3 (150-450); RBC Distribution Width CV 12.9 % (11.6-14.6); RBC Distribution Width SD 43.1 fl (35.1-43.9); Red Blood Count 4.24 M/mm3 (4.2-5.4)
[2020-08-08 12:29] VITALS: BP 101/64; BP 111/78; BP 112/71; PULSE 84; PULSE 87; PULSE 98
[2020-08-08 12:30] LABS: International Normalized Ratio 0.9; Prothrombin Time (Protime)PT. 12.1 SECONDS (11.7-14.9)
[2020-08-08 12:31] LABS: Partial Thromboplast Time 27.9 Seconds (24.1-36.2)
[2020-08-08 12:31] LABS: Color, Urine Yellow (Yellow); Glucose, Dipstick Normal (Normal); Ketone-Dipstick 5 mg/dl (Negative); Leukocyte Esterase-Dipstick 25 /ul (Negative); Nitrite-Dipstick Negative (Negative); Occult Blood-Urine 250 /ul (Negative); Protein-Dipstick 15 mg/dl (Negative); Urine Bilirubin Dipstick Negative (Negative); Urine Clarity Sl. Cloudy (Clear); Urine Urobilinogen Normal (Normal)
[2020-08-08 12:38] LABS: ALB/GLOB Ratio 0.9 RATIO (0.9-2.4); AST(SGOT) 130 U/L (15-37); Alanine Aminotransfer ALT/SGPT 102 U/L (13-56); Albumin, Serum 3.4 g/dL (3.2-5.0); Alkaline Phosphatase 109 U/L (45-117); Anion Gap 2 (5-15); BUN 9 mg/dL (7-18); BUN/Creat Ratio 12.7 RATIO (10-20); Calcium,Total 8.7 mg/dL (8.5-10.1); Chloride 109 mmol/L (98-107); Creatinine, Serum 0.71 mg/dL (0.55-1.02); EST Glomerular Filtration Rate 108 mL/min (>60); Est Glom Filt Rate - Afr Amer 130 mL/min (>60); Estimated Creatinine Clearance 109.94 ml/min; Globulin 3.8 g/dL (2.2-4.2); Glucose 81 mg/dL (74-106); Internal QC Validated? YES +Cl - CLEAR BKGD; Potassium 3.7 mmol/L (3.5-5.1); Pregnancy, Serum, hCG Quali. NEGATIVE Negative; Protein, Total 7.2 g/dL (6.4-8.2); Sodium Level 140 mmol/L (136-145)
[2020-08-08 12:43] LABS: Bacteria 1+ /hpf (None Seen); Mucous, Urine 1+ /hpf (<or=2+); Red Blood Cells-Urine 25-50 SEEN /hpf (0-5); Squamous Epithelial Cells - UA 0-5 SEEN /hpf (5-10); White Blood Cells 0-5 SEEN /hpf (0-5)
[2020-08-08 13:37] VITALS: PULSE 80
== END 2020-08-08 13:38 | disposition home or self-care (01) ==
PROVIDERS: Emergency Provider Emergency Medicine
DX: N92.0 Excessive and frequent menstruation with regular cycle (principal); R10.30 Lower abdominal pain, unspecified
CPT/HCPCS: 80053; 81001; 84703; 85025; 85610; 85730; 99285; A4216

== ENCOUNTER → 2020-09-23 11:57 | Outpatient (CLI) | payer MEDICAID, SELFPAY | PROVIDERS: Visit Provider Obstetrics & Gynecology | DX: Z11.3 Encounter for screening for infections with a predominantly sexual mode of transmission (principal) ==

== ENCOUNTER 2023-05-10 18:57 | Emergency (ER) | payer MEDICAID, SELFPAY ==
[2023-05-10 18:58] VITALS: BP 124/86; PULSE 103; RESP 14; TEMP 35.7; O2SAT 97; BMI 39.3
--- NOTE | 2023-05-10 19:08 | RAD_ITS ---
STUDY: X-RAY - LEFT WRIST REASON FOR EXAM: Female, 28 years old. trauma TECHNIQUE: 3 view(s) of the wrist were obtained. COMPARISON: None. FINDINGS: Normal visualized distal radius and ulna. Normal radiocarpal articulation. Normal distal radioulnar articulation. Normal carpal bones. Normal carpal articulations. Normal carpometacarpal articulation of the thumb. Normal second through fifth carpometacarpal articulations. Normal visualized metacarpal bones. The soft tissue structures are unremarkable. RAD/Wrist min 3 Views IMPRESSION: Normal x-ray examination of the wrist. Electronically Signed: Ion Andre MD at 19:58 EDT ,
--- NOTE | 2023-05-10 19:08 | EDS_ITS ---
HPI History of Present Illness HPI Narrative: Injury to the left elbow and left wrist at home. Chief Complaint: Upper Extremity Injury Informant: patient Occured/Mechanism Mechanism/Context: Yes injury and Yes blunt trauma Onset/Context/Timing Onset: Today Context: Sudden Onset Timing: Continuous Quality of Pain: Sharp and Stabbing Current Severity: Moderate Maximum Severity: Moderate Associated Symptoms Associated Symptoms: Negative for Parasthesia, Weakness or Loss of Funtion Narrative Narrative: 28-year-old female [id number]. Was wrestling at home with her children and her boyfriend. Said she was kind of leaning on her left elbow when he got hyperextended she went down injuring her left elbow and left wrist. Concerned she may have broke one of the other. She did break her left wrist 1 to 2 years ago and had it casted. She is never had any surgery on her left upper extremity. She denies any other complaints. No head injury or LOC. Prior similar symptoms: No Recent Illness/Hospitalization: No PFSH PFSH Medical History no medical history no medical history Home Medications NK 08/08/20 [History Last Taken Unknown] Allergy/AdvReac Type Severity Reaction Status Date / Time latex Allergy Hives Verified 05/10/23 18:58 tramadol Allergy Chest Verified 05/10/23 18:58 tightness Surgical History delivery delivered Hx of appendectomy Hx of cholecystectomy Social History Smoking Status: Current every day smoker tobacco type: cigarettes alcohol intake: never substance use type: does not use caffeine: Yes what type of physical activity do you participate in: none seatbelt use: always do you feel safe at home: Yes additional social history: Donnel- Patient works at [employer] Patient works at [email or web address] ROS ROS ED ROS Narrative Denies recent illness. Review of Systems ROS Unobtainable: Denies due to encephalopathy Constitutional Constitutional ED: Denies fever(s) Eyes Eyes: Denies blurry vision ENT ENT ED: Denies ear pain Cardiovascular Cardiovascular: Denies chest pain Respiratory/Chest Respiratory/Chest: Denies cough Gastrointestinal Gastrointestinal: Denies abdominal pain Genitourinary Genitourinary ED: Denies dysuria Integumentary Denies abscess Neurologic Neurologic: Denies headache(s) Psychiatric Psychiatric: Denies anxiety Endocrine Endocrinology: Denies cold intolerance Hematologic/Lymphatic Hematologic/Lymphatic: Denies easy bleeding or easy bruising Allergic/Immunologic Allergic/Immunologic ED: Denies mouth swelling or tongue swelling EXAM Physical Exam Narrative Exam Narrative: Well-appearing 28-year-old female. Vital signs stable afebrile. H EENT exam pupils round reactive light. No trauma. Nontender. C-spine and trachea nontender. Normal range of motion. Back and spine nontender. Lungs clear equal symmetrical bilaterally. Chest wall nontender. Heart regular rate and rhythm no murmur. Abdomen soft nontender. Pelvic girdle intact. Right upper and both lower extremities are nontender with full range of motion. Neurovascular intact. No deformity. She has tenderness at the left elbow with decreased range of motion. Tenderness to left wrist. No significant swelling. No gross bony deformity. Left hand is neurovascularly intact. Palpable radial pulse. Normal cap refill. Normal pad hand strength and sensation. Left shoulder is nontender. Neurologically she is awake and alert. No focal motor deficits. Const Vital Signs: 05/10/23 18:58 Temperature 96.3 F L Temperature Source Temporal Pulse Rate 103 H Respiratory Rate 14 Blood Pressure 124/86 H Blood Pressure Mean 98 Pulse Ox 97 Oxygen Delivery Method Room Air Positive well nourished and well developed; Negative for cachectic, contractures or unkempt General Appearance ED: well developed and NAD; Negative for unkempt, cachectic, contractures, cyanotic or diaphoretic Nutritional Appearance: Negative for cachectic HEENT Reports moist mucous membranes normocephalic and atraumatic; Negative for trauma or tenderness Eyes PERRL and EOMs intact bilaterally General Eye ED: Negative for other Neck full ROM and supple General: Negative for tenderness Lymph Lymphatic: Negative for other Chest Wall inspection of chest normal and palpation of chest normal Chest: Negative for other Resp normal respiratory effort and clear to auscultation bilaterally Effort and Inspection: Negative for pain with movement Auscultation: Negative for rales, rhonchi or wheezes Cardio regular rate, regular rhythm, S1 normal heart sound, S2 normal heart sound and no murmurs Rhythm: Negative for abnormal rhythm GI non-tender, non-distended and no masses Inspection: Negative for abdominal distention Auscultation: normoactive bowel sounds Palpation: soft; Negative for tender or guarding Back/Spine no CVA tenderness General Back: Negative for CVA tenderness Cervical Spine: Negative for cervical spine tenderness Thoracic Spine / Upper Back: Negative for thoracic spinal tenderness Lumbar Spine / Lower Back: Negative for lumbar spinal tenderness Extremity normal to inspection and full ROM Extremity Narrative: Except tenderness to the left elbow and left wrist. Decreased range of motion of the left elbow due to pain. Left hand neurovascular intact. No gross bony deformity. Neuro oriented x3, CN's II-XII intact bilaterally, moves all extremities, no focal motor deficits and no sensory deficits noted Sensorium / Orientation: alert, oriented to person, oriented to place and oriented to time; Negative for orientation impaired, lethargic or stuporous Motor Exam: strength 5/5 throughout Psych mental status grossly normal Appearance: Negative for unkempt Attitude: No agitated Mood & Affect: Negative for depressed, anxious or tearful Skin General Skin Exam: Negative for petechiae Lesions: no lesions Rashes: no rashes Trauma: no lacerations or abrasions; Negative for abrasion, laceration or puncture MDM MDM MDM Narrative Medical decision making narrative: 28-year-old left wrist and elbow pain after trauma. X-ray being obtained. She did not want anything for pain. Repeat exam doing well. Treated as a left elbow hyperextension in the left wrist sprain. Ice. Motrin for pain and swelling. Tylenol for pain. Follow-up if not improving. Return if worse. History & Record Review Discussion w/independent historian: Patient Radiography Diagnostic Testing: Left elbow x-ray 3 views interpreted by myself shows no acute abnormality. No fracture or dislocation. Left wrist x-ray 3 views interpreted by myself again shows no fracture or dislocation. Both x-rays were discussed with the patient. Discharge Plan Triage Chief Complaint: Upper Extremity Injury ED Provider: Pelon Kan Dx/Rx/DC Orders Clinical Impression: Hyperextension injury of left elbow, Left wrist sprain Instructions: ED Sprain, Elbow, ED Wrist Sprain Prescriptions: No Action NK Primary Care Provider: Jenna Mcfarlane NP Referrals: Care Physician,No Primary [Non-Staff] - Activity Restrictions/Additional Instructions: Ice your left elbow and left wrist and elevate to decrease pain and swelling. Motrin for pain and swelling. Tylenol for pain Follow-up improving. X-rays were normal today. Disposition Disposition: Home, Self Care
--- NOTE | 2023-05-10 19:23 | RAD_ITS ---
STUDY: X-RAY - LEFT ELBOW REASON FOR EXAM: Female, 28 years old. trauma TECHNIQUE: 3 view(s) of the elbow. COMPARISON: None. FINDINGS: Normal visualized humerus, radius and ulna. Normal radiocapitellar and ulnotrochlear articulations. The soft tissue structures are unremarkable. RAD/Elbow min 3 Views IMPRESSION: Normal x-ray examination of the elbow. Electronically Signed: Ion Andre MD at 19:58 EDT ,
== END 2023-05-10 20:14 | disposition home or self-care (01) ==
PROVIDERS: Emergency Provider Emergency Medicine; PCP Nurse Practitioner Primary Care; Visit Provider Emergency Medicine
DX: S63.92XA Sprain of unspecified part of left wrist and hand, initial encounter (principal); Z90.49 Acquired absence of other specified parts of digestive tract; F17.210 Nicotine dependence, cigarettes, uncomplicated; S59.802A Other specified injuries of left elbow, initial encounter; X58.XXXA Exposure to other specified factors, initial encounter; Y93.72 Activity, wrestling; Y92.009 Unspecified place in unspecified non-institutional (private) residence as the place of occurrence of the external cause
CPT/HCPCS: 73080; 73110; 99282

== ENCOUNTER 2023-09-28 12:33 | Emergency (ER) | payer MEDICAID, SELFPAY ==
[2023-09-28 12:35] VITALS: BP 113/81; PULSE 89; RESP 16; TEMP 36.2; O2SAT 97; BMI 39.0
--- NOTE | 2023-09-28 12:44 | RAD_ITS ---
EXAM: XR LEFT KNEE, 3 VIEWS CLINICAL INDICATION: knee injury TECHNIQUE: Three views of the left knee. COMPARISON: No relevant prior studies available. FINDINGS: BONES/JOINTS: Unremarkable. No acute fracture. No subluxation. Normal alignment. Preservation of the joint space. No sclerotic or destructive changes observed. SOFT TISSUES: Unremarkable. No soft tissue swelling or gas. No radiopaque foreign body. RAD/Knee 3 Views IMPRESSION: Negative left knee x-rays. Electronically Signed: Martin Zamudio MD at 14:21 EST ,
--- NOTE | 2023-09-28 12:45 | EDS_ITS ---
HPI <ASTRID Santana - Last Filed: 09/28/23 14:54> History of Present Illness Chief Complaint: Lower Extremity Injury Narrative Narrative: Patient presenting today with pain to her left knee that she has had since this afternoon when she was trying to teach her son a new wrestling move and was practicing on her . She is unsure of the direct mechanism of injury but her had one of her legs in the air and she lost her balance and fell dir ectly onto her left knee. She now reports swelling and pain to the left knee, she is able to ambulate. She denies any other injury. PFSH <ASTRID Santana - Last Filed: 09/28/23 14:54> PFSH Home Medications dextroamphetamine-amphetamine ER 20 mg 24hr capsule,extend release (Adderall XR) 20 mg PO DAILY 09/28/23 [History Last Taken Unknown] Allergy/AdvReac Type Severity Reaction Status Date / Time latex Allergy Hives Verified 09/28/23 12:33 tramadol Allergy Chest Verified 09/28/23 12:33 tightness Surgical History delivery delivered Hx of appendectomy Hx of cholecystectomy Social History Smoking Status: Current every day smoker tobacco type: cigarettes alcohol intake: never substance use type: does not use caffeine: Yes what type of physical activity do you participate in: none seatbelt use: always do you feel safe at home: Yes additional social history: Donnel- Patient works at [employer] Patient works at [employer] ROS <ASTRID Santana - Last Filed: 09/28/23 14:54> ROS ED Constitutional Constitutional ED: Denies chills or fever(s) Cardiovascular Cardiovascular: Denies chest pain Respiratory/Chest Respiratory/Chest: Denies cough or dyspnea Gastrointestinal Gastrointestinal: Denies abdominal pain, nausea or vomiting Musculoskeletal Musculoskeletal: Reports arthralgias; Denies back pain or neck pain Integumentary Denies rash Neurologic Neurologic: Denies paresthesias or weakness EXAM <ASTRID Santana - Last Filed: 09/28/23 14:54> Physical Exam Const Vital Signs: 09/28/23 12:35 Temperature 97.1 F L Temperature Source Temporal Pulse Rate 89 Respiratory Rate 16 Blood Pressure 113/81 H Blood Pressure Mean 91 Pulse Ox 97 Oxygen Delivery Method Room Air Positive well nourished, well developed and no apparent distress General Appearance ED: well developed HEENT Reports normocephalic and head/scalp atraumatic Mouth ED: Yes moist mucous membranes normal Eyes PERRL and EOMs intact bilaterally Neck full ROM and supple Chest Wall inspection of chest normal Resp normal respiratory effort and clear to auscultation bilaterally Cardio regular rate and regular rhythm GI soft to palpation, non-tender, non-distended and no masses Back/Spine normal ROM and normal to inspection Extremity Extremity Narrative: Minimal swelling to the left knee, no erythema, pain to the medial aspect of the left knee and infrapatellar region, extensor mechanism intact limited range of motion to the left knee due to pain. Negative anterior/posterior drawer test, no laxity noted with varus or valgus stress. Neuro oriented x3, CN's II-XII intact bilaterally, moves all extremities, no focal motor deficits and no sensory deficits noted Sensorium / Orientation: awake and alert Psych mental status grossly normal and thought process normal Skin no rashes or lesions noted and no wounds <Dr. Brian Cavanaugh MD - Last Filed: 09/28/23 14:22> Physical Exam Const Vital Signs: 09/28/23 12:35 Temperature 97.1 F L Temperature Source Temporal Pulse Rate 89 Respiratory Rate 16 Blood Pressure 113/81 H Blood Pressure Mean 91 Pulse Ox 97 Oxygen Delivery Method Room Air MDM <ASTRID Santana - Last Filed: 09/28/23 14:54> [facility] Narrative Medical decision making narrative: Patient presenting with pain to her left knee after injuring it while trying to perform a wrestling move on her and falling directly onto her left knee. She does have a minimal swelling and bruising to the knee, extensor mechanism is intact, X-ray will be obtained to rule out fracture. She does not want anything for pain at this time. X-ray negative for any acute findings. Examination consistent with a knee contusion. She has been given an Ephraim wrap and is to alternate Tylenol and ibuprofen for her pain as needed. She has been given RICE instructions and will be discharged home in stable condition. She can follow-up with her PCP and is comfortable with plan Radiography X-Ray: Read by ED Physician and Read by Radiologist Diagnostic Testing: Clinical Impression(s) from Imaging Studies Knee X-Ray 09/28/23 12:44 IMPRESSION: Negative left knee x-rays. Electronically Signed: Martin Zamudio MD at 14:21 EST , <Dr. Brian Cavanaugh MD - Last Filed: 09/28/23 14:22> MDM Radiography Diagnostic Testing: Clinical Impression(s) from Imaging Studies Knee X-Ray 09/28/23 12:44 IMPRESSION: Negative left knee x-rays. Electronically Signed: Martin Zamudio MD at 14:21 EST , Treatment and Re-Evaluation Narrative: I have personally performed a face to face assessment of the patient and have reviewed the NGUYEN Note. I performed a substantive portion of the visit including all aspects of the following. My romero findings include: History is patient was showing her son a wrestling maneuver when she lost her balance and fell onto flexed left knee sustaining a localized injury. Able to walk and use it since then but it hurts to do so. Exam is large broad-based ecchymotic contusion anterior left knee, a little more caudal than the kneecap. There is bony tenderness at the distal pole of the patella as well as the tibial tuberosity, but extensor mechanism is intact there is no effusion, all ligaments are stable with short endpoints on stressing without significant pain, anterior and posterior drawer signs are negative. Neurovascular intact distally. Almost full range of motion, limited at extreme of flexion only. Medical Decison Making x-ray 3 views left knee negative on my interpretation. Radiology interpretation still pending. Patient okay going home. We will give her an Ephraim wrap, supportive care for what is likely contusion and follow-up as needed. Other additions or changes: [None] Discharge Plan Triage Chief Complaint: Lower Extremity Injury ED Midlevel Provider: Kristine Gaines ED Provider: Brian Cavanaugh Dx/Rx/DC Orders Clinical Impression: Contusion of knee, left Instructions: Knee Pain Prescriptions: No Action dextroamphetamine-amphetamine [Adderall XR] 20 mg capsule,extended release 24hr 20 mg PO DAILY Patient Comments: TAKE 1 CAPSULE BY MOUTH EVERY DAY IN THE MORNING Primary Care Provider: Jenna Mcfarlane NP Referrals: Jenna Mcfarlane NP, CLINICAL PHARMACIST-C [Primary Care Provider] - Activity Restrictions/Additional Instructions: Ice your knee several times a day for the next few days, alternate Tylenol and ibuprofen for your pain as needed. Follow-up with your PCP. Disposition Disposition: Home, Self Care Discharge Date/Time: 09/28/23 14:11
== END 2023-09-28 14:11 | disposition home or self-care (01) ==
PROVIDERS: Emergency Provider Emergency Medicine; PCP Nurse Practitioner Primary Care; Visit Provider Emergency Medicine
DX: S80.02XA Contusion of left knee, initial encounter (principal); X58.XXXA Exposure to other specified factors, initial encounter; Y93.72 Activity, wrestling; Z90.49 Acquired absence of other specified parts of digestive tract; F17.210 Nicotine dependence, cigarettes, uncomplicated
CPT/HCPCS: 73562; 99282

== ENCOUNTER 2023-11-10 13:34 | Emergency (ER) | payer MEDICAID, SELFPAY ==
[2023-11-10 13:35] VITALS: BP 120/74; PULSE 114; RESP 16; TEMP 37; O2SAT 97
--- NOTE | 2023-11-10 13:42 | EX.ED.VIS.UR ---
HPI <ASTRID Santana - Last Filed: 11/10/23 16:42> HPI - URI History of Present Illness Chief Complaint: Sore Throat Narrative Narrative: Patient presenting today with cold-like symptoms that started yesterday. She is being seen here with her daughter who is sick with similar symptoms. She reports that she has had a sore throat and headache. She is concerned that she has strep throat. She denies any fever, chills, abdominal pain, nausea, vomiting, and shortness of breath. She denies a PMH of any chronic health conditions. ROS <ASTRID Santana - Last Filed: 11/10/23 16:42> ROS ED Constitutional Constitutional ED: Denies chills or fever(s) ENT ENT ED: Reports sore throat; Denies ear pain or rhinorrhea Cardiovascular Cardiovascular: Denies chest pain Respiratory/Chest Respiratory/Chest: Denies cough or dyspnea Gastrointestinal Gastrointestinal: Denies abdominal pain, nausea or vomiting Musculoskeletal Musculoskeletal: Denies arthralgias or myalgias Integumentary Denies rash Neurologic Neurologic: Denies weakness PFSH <ASTRID Santana - Last Filed: 11/10/23 16:42> PFSH Home Medications dextroamphetamine-amphetamine ER 20 mg 24hr capsule,extend release (Adderall XR) 20 mg PO DAILY 09/28/23 [History Last Taken Unknown] amoxicillin 500 mg capsule 500 mg PO BID #19 caps 11/10/23 [Rx Last Taken Unknown] Allergy/AdvReac Type Severity Reaction Status Date / Time latex Allergy Hives Verified 09/28/23 12:33 tramadol Allergy Chest Verified 09/28/23 12:33 tightness Surgical History delivery delivered Hx of appendectomy Hx of cholecystectomy Social History Smoking Status: Current every day smoker tobacco type: cigarettes alcohol intake: never substance use type: does not use caffeine: Yes what type of physical activity do you participate in: none seatbelt use: always do you feel safe at home: Yes additional social history: Donnel- Patient works at [employer] Patient works at [employer] <ASTRID Santana - Last Filed: 11/10/23 16:42> Physical Exam Const Vital Signs: 11/10/23 13:35 11/10/23 14:56 Temperature 98.6 F 98.6 F Temperature Source Oral Pulse Rate 114 H 114 H Respiratory Rate 16 16 Blood Pressure 120/74 120/74 Blood Pressure Mean 89 89 Pulse Ox 97 97 Oxygen Delivery Method Room Air Positive well nourished, well developed and no apparent distress General Appearance ED: well developed HEENT Reports normocephalic and head/scalp atraumatic HEENT Narrative: Posterior pharynx erythemic, bilateral tonsillar exudates, uvula midline, no trismus, no drooling, no signs of peritonsillar abscess Bilateral TMs clear Mouth ED: Yes moist mucous membranes normal Eyes PERRL and EOMs intact bilaterally Neck full ROM and supple Chest Wall inspection of chest normal Resp normal respiratory effort and clear to auscultation bilaterally Cardio regular rate and regular rhythm GI soft to palpation, non-tender, non-distended and no masses Back/Spine normal ROM and normal to inspection Extremity normal to inspection and full ROM Neuro oriented x3, CN's II-XII intact bilaterally, moves all extremities, no focal motor deficits and no sensory deficits noted Sensorium / Orientation: awake and alert Psych mental status grossly normal and thought process normal Skin no rashes or lesions noted and no wounds <Dr. Pérez Camp MD - Last Filed: 11/10/23 22:00> Physical Exam Const Vital Signs: 11/10/23 13:35 11/10/23 14:56 Temperature 98.6 F 98.6 F Temperature Source Oral Pulse Rate 114 H 114 H Respiratory Rate 16 16 Blood Pressure 120/74 120/74 Blood Pressure Mean 89 89 Pulse Ox 97 97 Oxygen Delivery Method Room Air [facility] <ASTRID Santana - Last Filed: 11/10/23 16:42> [facility] Narrative Medical decision making narrative: Patient presenting with a sore throat she has had since yesterday. She is concerned that she could have strep throat. Rapid strep will be obtained. Her daughter is being seen here for similar symptoms. She is nontoxic-appearing and in no acute distress. She is initially slightly tachycardic. Patient does have strep throat. She will be treated with amoxicillin with first dose here. She will be discharged home in stable condition and is comfortable with plan. <Dr. Pérez Camp MD - Last Filed: 11/10/23 22:00> [facility] Treatment and Re-Evaluation Narrative: I have personally performed a face to face assessment of the patient and have reviewed the NGUYEN Note. I performed a substantive portion of the visit including all aspects of the following. My romero findings include: History: Patient has about a day or so of sore throat. Subjective fever but none measured. Not coughing. No vomiting. Daughter has similar symptoms. Exam: Patient is nontoxic. She does have pretty notable exudate and odor consistent with strep on exam. Mild cervical lymphadenopathy. Lungs are clear. Medical Decision Making: She will be treated as her strep is positive and her symptoms are consistent with this. Discharge Plan Triage Chief Complaint: Sore Throat ED Midlevel Provider: Kristine Gaines ED Provider: Pérez Camp Dx/Rx/DC Orders Clinical Impression: Strep throat Instructions: ED Pharyngitis, Strep (Confirmed) Prescriptions: New amoxicillin 500 mg capsule 500 mg PO BID Qty: 19 0RF No Action dextroamphetamine-amphetamine [Adderall XR] 20 mg capsule,extended release 24hr 20 mg PO DAILY Patient Comments: TAKE 1 CAPSULE BY MOUTH EVERY DAY IN THE MORNING Primary Care Provider: Jenna Mcfarlane NP Referrals: Jenna Mcfarlane NP, DEVELOPMENT DIRECTOR-C [Primary Care Provider] - 3-5 Days if not improving Activity Restrictions/Additional Instructions: Follow-up with your PCP or return for any worsening of your symptoms. Disposition Disposition: Home, Self Care Discharge Date/Time: 11/10/23 14:57
--- OUTSIDE RECORDS SUMMARY | 2023-11-10 14:06 | XMS RPT_ITS | CCD ---
Author Name Unknown Address [address] [place] [address] Organization [facility] Care Team Providers Care Second Operator Name Role Phone Vaughn GAGNON, Phyllis Carlson Unavailable RENNY FELDMAN Unavailable Unavai lable NO PRIMARY CARE, Unavailable Unavailable JUANITA RUCKER Unavailable Unavailabl e THANG, ABIGAIL T Unavailable Unavailable NO PRIMARY CARE, MD Unavailable Unavailable JUANITA RUCKER Unavailable Unavailabl e ABIGAIL STOCK L Unavailable Unavailable THANG, ABIGAIL T Unavailable Unavailable NO PRIMARY CARE, MD Unavailable Unavailable THANG, ABIGAIL T Unavailable Unavailable THANG, ABIGAIL T Unavailable Unavailable NO PRIMARY CARE, MD Unavailable Unavailable Unavailable Primary Care Provider Unavaildoron e STEPHANI POWERSN-GAYLE, CHARITY Primary Care Physician Stephani PASTRANA, Charity Primary Care Provider STEPHANI MATUTE-ENGINE LATHE SET UP OPERATOR TOOL, CHARITY Attending Kevyn STYLES APRN-GAYLE, CHARITY Primary Care ANGIE Godoy MD Attending Unavailable STEPHANI POWERSN-ENGINE LATHE SET UP OPERATOR TOOL, CHARITY Primary Care ANGIE Godoy MD Attending Unavailable STEPHANI POWERSN-ENGINE LATHE SET UP OPERATOR TOOL, CHARITY Primary Care VANNESA Rodrigues MD Attending Unavailable SABINE POWERSN-GAYLE, MAKENNA Carlson Primary Care Kevyn STYLES APRN-ENGINE LATHE SET UP OPERATOR TOOL, CHARITY Attending Kevyn STYLES APRN-ENGINE LATHE SET UP OPERATOR TOOL, CHARITY Primary Care Kevyn labpamela Styles APRN.ENGINE LATHE SET UP OPERATOR TOOL, Charity Primary Care Provider CHARITY STYLES Primary Care Unavailable FLORESITA CORREA Referring Unavailable FLORESITA CORREA Attending Unavailable CHARITY STYLES Primary Care Unavailable CHARITY STYLES Primary Care Unavailable CHARITY STYLES Primary Care Unavailable Allergies Allergy Classification Reported Allergen(s) Allergy Type Date of Onset Reaction(s) Facility (9 sources) atomoxetine; Translations: [ATOMOXETINE HCL] Drug Allergy 07-29-2013 Hives [facility] (11 sources) Latex; Translations: [LATEX] Drug Allergy 05-04-2021 Itching, Rash, Itching (finding), Eruption of skin (disorder) [facility] Medications Current Medications Medication Drug Class(es) Dates Sig (Normalized) Sig (Original) acetaminophen 500 mg / diphenhydrAMINE citrate 38 mg oral tablet (2 sources) Histamine-1 Receptor Antagonist Start: 06-17-2019 take 2-3 tablets by mouth once daily Excedrin PM Express 500 mg-38 mg oral tablet 2-3 tabs, Oral, qDay, 0 Refill(s) Start Date: 06/17/19 Status: Ordered 24 hr amphetamine aspartate 5 mg / amphetamine sulfate 5 mg / dextroamphetamine saccharate 5 mg / dextroamphetamine sulfate 5 mg extended release oral capsule (14 sources) Central Nervous System Stimulant Start: 10-06-2022 End: 01-06-2023 Adderall XR 20 mg oral capsule, extended release Dose : 20 mg = 1 cap(s), Oral, qAM, # 30 cap(s), 0 Refill(s), Pharmacy: [id number], ADHD, 12/05/22, 163.5, cm, 10/02/22 15:12:00 EST, Height, 104.6, kg, 10/02/22 15:12:00 EST, Dosing Weight Start Date: 12/07/22 Stop Date: 01/06/23 Status: Ordered Completed/Discontinued Medications Medication Drug Class(es) Dates Sig (Normalized) Sig (Original) 8 hr acetaminophen 650 mg extended release oral tablet (1 source) Start: 11-26-2016 ACETAMINOPHEN ER 650 MG CR-TABS as directed ACETAMINOPHEN [id number] Bobbi Shepard RN ACETAMINOPHEN WITH CODEINE (TYLENOL-CODEINE #3 ORAL) (3 sources) End: 01-07-2023 ACETAMINOPHEN WITH CODEINE (TYLENOL-CODEINE #3 ORAL) Take by mouth. 0 01/07/2023 Discontinued Problems Active Problems Problem Classification Problem Date Documented Date Episodic/Chronic Attention-deficit, conduct, and disruptive behavior disorders (2 sources) Attention deficit hyperactivity disorder, predominantly inattentive type 06-26-2021 Chronic Attention-deficit, conduct, and disruptive behavior disorders (2 sources) Attention deficit hyperactivity disorder 12-26-2020 Chronic Genitourinary symptoms and ill-defined conditions (1 source) Scalding pain on urination ; Translations: [Dysuria] 09-24-2023 Episodic Headache; including migraine (2 sources) Headache 06-17-2019 Episodic Lymphadenitis (2 sources) Submandibular lymphadenopathy 01-29-2022 Episodic Mood disorders (2 sources) Depressive disorder 06-29-2019 Chronic Other female genital disorders (2 sources) Unspecified dyspareunia; Translations: [Unspecified dyspareunia] Onset: 04-15-2023 Chronic Other female genital disorders (2 sources) History of gynecological disorder 12-18-2021 Episodic Other non-traumatic joint disorders (1 source) Pain in left knee; Translations: [Pain in joint, lower leg] 10-21-2023 Episodic Other nutritional; endocrine; and metabolic disorders (1 source) Body mass index (BMI) 34.0-34.9, adult; Translations: [Body mass index (BMI) 34.0-34.9, adult] Onset: 11-26-2016 11-26-2016 Chronic Other nutritional; endocrine; and metabolic disorders (2 sources) Body mass index 30+ - obesity 07-02-2022 Chronic Other skin disorders (2 sources) Folliculitis 01-29-2022 Episodic Other upper respiratory infections (4 sources) Sore throat symptom; Translations: [Acute pharyngitis, unspecified] Episodic Residual codes; unclassified (1 source) Pain; Translations: [Pain, unspecified] 10-21-2023 Episodic Residual codes; unclassified (1 source) Pain, unspecified; Translations: [Pain] Onset: 10-21-2023 Episodic Screening or history of mental health and substance abuse (1 source) Nicotine dependence; Translations: [Nicotine dependence, unspecified, uncomplicated] Onset: 11-26-2016 11-26-2016 Chronic Superficial injury; contusion (1 source) Contusion of left knee; Translations: [Contusion of left knee, initial encounter] 10-21-2023 Episodic Unclassified (1 source) Cough, unspecified; Translations: [Cough, unspecified] Onset: 10-02-2022 Past or Other Problems Problem Classification Problem Date Documented Da te Episodic/Chronic Appendicitis and other appendiceal conditions (8 sources) Acute appendicitis; Translations: [Unspecified acute appendicitis] Onset: 3 07-24-2013 Episodic Nonspecific chest pain (1 source) Chest pain; Translations: [Chest pain, unspecified] Onset: 7 11-26-2016 Episodic Other circulatory disease (1 source) Electrocardiogram abnormal; Translations: [Abnormal electrocardiogram [ECG] [EKG]] Onset: 7 11-26-2016 Episodic Other gastrointestinal disorders (2 sources) Diarrhea, unspecified; Translations: [Diarrhea, unspecified] Onset: 2 Episodic Unclassified (1 source) Cough, unspecified; Translations: [Cough, unspecified] Onset: 2 Urinary tract infections (8 sources) Urinary tract infectious disease; Translations: [Urinary tract infection, site not specified] Onset: 3 07-29-2013 Episodic Results Test Name Value Interpretation Reference Range Facil ity Vital Signs Date Time Vital Sign Value Performing Clinician Darrell harp 09-24-2023 12:32-0500 Body temperature 97.2 [degF] Gabrielle Mccracken APRN.CNP Work Phone: [facility] 09-24-2023 12:32-0500 Body weight 107.05 kg Gabrielle Mccracken APRN.CNP Work Phone: [facility] 09-24-2023 12:32-0500 Diastolic blood pressure 70 mm[Hg] Gabrielle Mccracken APRN.CNP Work Phone: [facility] 09-24-2023 12:32-0500 Heart rate 99 /min Gabrielle Mccracken APRN.CNP Work Phone: [facility] 09-24-2023 12:32-0500 Respiratory rate 16 /min Gabrielle Mccracken APRN.CNP Work Phone: [facility] 09-24-2023 12:32-0500 SaO2% (BldA) [Mass fraction] 98 % Gabrielle Mccracken REFINISHER.ENGINE LATHE SET UP OPERATOR TOOL Work Phone: [facility] 09-24-2023 12:32-0500 Systolic blood pressure 110 mm[Hg] Gabrielle Mccracken REFINISHER.ENGINE LATHE SET UP OPERATOR TOOL Work Phone: [facility] 01-07-2023 13:57-0500 Body temperature 98.1 [degF] Michelle Praisler-Wood REFINISHER.ENGINE LATHE SET UP OPERATOR TOOL Work Phone: [facility] 01-07-2023 13:57-0500 Body weight 106.14 kg Michelle Praisler-Wood REFINISHER.ENGINE LATHE SET UP OPERATOR TOOL Work Phone: [facility] 01-07-2023 13:57-0500 Diastolic blood pressure 72 mm[Hg] Michelle Praisler-Wood REFINISHER.ENGINE LATHE SET UP OPERATOR TOOL Work Phone: [facility] 01-07-2023 13:57-0500 Heart rate 95 /min Michelle Praisler-Wood REFINISHER.ENGINE LATHE SET UP OPERATOR TOOL Work Phone: [facility] 01-07-2023 13:57-0500 Respiratory rate 21 /min Michelle Praisler-Wood REFINISHER.ENGINE LATHE SET UP OPERATOR TOOL Work Phone: [facility] 01-07-2023 13:57-0500 SaO2% (BldA) [Mass fraction] 97 % Michelle Praisler-Wood REFINISHER.ENGINE LATHE SET UP OPERATOR TOOL Work Phone: [facility] 01-07-2023 13:57-0500 Systolic blood pressure 100 mm[Hg] Michelle Praisler-Wood REFINISHER.ENGINE LATHE SET UP OPERATOR TOOL Work Phone: [facility] 05-16-2022 12:57-0400 Body temperature 98.4 [degF] Lisbeth Denbow PA-C Work Phone: [facility] 05-16-2022 12:57-0400 Body weight 104.78 kg Lisbeth Denbow PA-C Work Phone: [facility] 05-16-2022 12:57-0400 Diastolic blood pressure 72 mm[Hg] Lisbeth Denbow PA-C Work Phone: [facility] 05-16-2022 12:57-0400 Heart rate 94 /min Lisbeth Denbow PA-C Work Phone: [facility] 05-16-2022 12:57-0400 Respiratory rate 18 /min Lisbeth Denbow PA-C Work Phone: [facility] 05-16-2022 12:57-0400 SaO2% (BldA) [Mass fraction] 98 % Lisbeth Denbow PA-C Work Phone: [facility] 05-16-2022 12:57-0400 Systolic blood pressure 122 mm[Hg] Lisbeth Denbow PA-C Work Phone: [facility] 11-29-2016 14:36-0500 BMI (Body Mass Index) 34.44 kg/m2 [facility] Work Phone: 11-29-2016 14:36-0500 Body Temperature 97.9 [degF] [facility] Work Phone: 11-29-2016 14:36-0500 BP Diastolic 70 mm[Hg] [facility] Work Phone: 11-29-2016 14:36-0500 BP Systolic 110 mm[Hg] Phyllis Mendes RN [facility] Work Phone: 11-29-2016 14:36-0500 BSA (Body Surface Area) 2.01 m2 Phyllis Mendes RN [facility] Work Phone: 11-29-2016 14:36-0500 Height 165.1 cm Phyllis Mendes RN [facility] Work Phone: 11-29-2016 14:36-0500 Pulse (Heart Rate) 108 /min [facility] Work Phone: 11-29-2016 14:36-0500 Pulse Oximetry 99 % [facility] Work Phone: 11-29-2016 14:36-0500 Respiratory Rate 14 /min [facility] Work Phone: 11-29-2016 14:36-0500 Weight 93.9 kg Phyllis [facility] Work Phone: Encounters Encounter Date Encounter Type Care Provider Facility Start: 10-21-2023 End: 10-21-2023 ambulatory FLORESITA CORREA Facility:[facility] Start: 10-21-2023 End: 10-21-2023 Patient encounter procedure Floresitadra Hairhugh PARegla Work Phone: Orthopaedics Procedures Date Procedure Procedure Detail Performing Clinician Start: 09-24-2023 Urnls dip stick/tabl et rgnt auto w/o microscopy Shanta Carty REFINISHER.ENGINE LATHE SET UP OPERATOR TOOL Work Phone: Start: 01-07-2023 STREP A MOLECULAR (POC) Tucker Carnes REFINISHER.ENGINE LATHE SET UP OPERATOR TOOL Work Phone: Start: 05-16-2022 STREP A MOLECULAR (POC) Lisbeth vAelar PALolaC Work Phone: Start: 11-29-2016 End: 12-07-2016 Electrocardiogram, complete Lorenzo phillip MD Start: 11-29-2016 End: 01-03-2017 Follow Up Appt 6 weeks Lorenzo Schaffer MD Start: 11-29-2016 End: 01-03-2017 MMM Lorenzo Schaffer MD Appendectomy CHARITY STYLES REFINISHER-ENGINE LATHE SET UP OPERATOR TOOL Cholecystectomy CHARITY WESTON REFINISHER-ENGINE LATHE SET UP OPERATOR TOOL Deliveries by rona faye (finding) CHARITY STYLES REFINISHER-ENGINE LATHE SET UP OPERATOR TOOL Plan of Treatment Date Care Activity Detail Author Start: 01-07-2028 Urine microalbumin profile DTaP,Tdap,Td Vaccine (3 - Td or Tdap) [facility] Start: 09-24-2023 End: 12-24-2023 Bacteria identified in Urine by Culture [facility] Work Phone: Immunizations Immunization Date Immunization Notes Care Provider Lila shanaeangie 01-07-2018 tetanus toxoid, redu marv diphtheria toxoid, and acellular pertussis vaccine, adsorbed CHARITY STYLES REFINISHER-ENGINE LATHE SET UP OPERATOR TOOL [facility] Payers Date Payer Category Payer Medicaid [employer] [employer] [place] [employer] [employer] [id number] 2022-Present [phone] [place] [address] 22965 Medicaid [id number] 2022 Unknown [id number] 2003 Medicaid [place] [employer] [place] [id number] 2003-Present [phone] [place] [address] [id number] Medicaid [id number] 1996 Unknown [id number] 1996 Unknown [id number] 1996 Unknown [id number] 1996 Unknown [id number] 1996 Unknown [id number] Social History Date Type Detail Facility Start: [facility]-06-[facility] History of tobacco use Cigarette Smoker [facility] Start: 08-06-2016 End: 09-24-2023 Tobacco use and exposure Smokeless tobacco non-user [facility] Start: 05-16-2022 End: 09-24-2023 Alcohol intake Not Asked [facility] Start: 1995 Sex Assigned At Not on file [facility] Start: 05-06-2022 End: 05-16-2022 Exposure to SARS-CoV-2 (event) Not sure [facility] Start: 01-15-2022 End: 09-24-2023 Tobacco smoking status Ex-smoker (finding) [facility] Sex Assigned At Female [facility] History of tobacco use Current smoker [facility] Start: 10-19-2020 End: 09-24-2023 History of Social function [facility] Start: 10-19-2020 End: 09-24-2023 Tobacco use panel [facility] National Score (1-10 0), lower number is lower risk Not on file [facility] Start: 10-21-2023 Alcohol intake Ex-drinker (finding) [facility] Clinical Notes 07-24-2013 to 10-21-2023 Floresita Correa PA-C - 10/21/2023 1:50 PM Chloe Payne RN - 10/21/2023 1:16 PM ESTTelephone Encounter - Krysta Berman MA - 09/26/2023 10:39 AM ESTPatient InstructionsPatient Instructions Note Date & Type Note Facility 10-21-2023 Note HNO ID: [id number] Author: Floresita Correa PA-C Service: ? Author Type: Physician Cylinder Die Machine Helper Type: Progress Notes Filed: 10/23/2023 8:58 AM Note Text: Floresita Correa PA-C Department of Orthopaedics Orthopaedics [address] [facility] [address] Dept: [phone] Dept October 21, 2023 CHIEF COMPLAINT: New of the Left Knee (Left knee injury/Xray 10/21/2023) Ms. Lisbeth Escudero is a 28 year old female who presents with pain and swelling along the anterior aspect of her left knee since an injury that occurred 1 month ago. Patient and her were showing their kids a wrestling move, the patient fell landed on her left knee. As she fell she heard a loud pop . She was seen in the emergency room at [facility], had x-rays and told that nothing was broken . The patient reports that she had quite a bit of bruising along the anterior aspect of the knee, the bruising has resolved but she has swelling and pain as well as numbness which is not improving. She has been taking some intermittent ibuprofen but nothing consistent. Has been massaging the area and taking warm baths. 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 ASSESSMENT: S80.02XA Contusion of left knee, initial encounter (primary encounter diagnosis) M25.562 Acute pain of left knee PLAN: She has quite impressive hematoma across the anterior aspect of her knee. Will get her on a more consistent anti-inflammatory, paired with a steroid as well as some compression from an Ephraim wrap. Advised her to continue with gentle massage as well. I like to see her back in a few weeks to make sure that things are improving, if there is no improvement we may consider some additional imaging of the knee. Ms. Lisbeth Escudero was advised as to contrast therapies and/or to take analgesics/anti-inflammatories as needed and all contraindications were reviewed. OBJECTIVE: Ms. Lisbeth Escudero is a pleasant 28 year old in no apparent distress. Gen:LMP 06/22/2019 nl development, obese, no deformities ENT: Normocephalic, normal hearing, moist mucosa CV: Pulses:DP/PT= 2+ and symmetric, capillary refill < 2 secs, no peripheral edema/varicosities Skin: no rash, bruising or lesions. Good turgor. Psych: cooperative and appropriate, alert and oriented x 3, good mood and affect. Musculoskeletal: KNEE EXAM: Left: Alignment: Neutral Range of motion is 0 degrees in extension and 110 degrees of flexion. Extension La degrees Pain with ROM: Yes, patient is able to hold the leg in extension against gravity. Effusion: No effusion of the joint, large area of swelling over the prebursal area. Tender to the palpation of anterior knee over the prepatellar bursal area. Pain with patellar compression: Yes Stability: Anterior/Posterior stable and Varus/Valgus stable Hip Exam: flexion to 100+ degrees, full extension, internal/external rotation adequate, and no pain with log roll Neurovascular Status: Sensation Intact, Moves foot and ankle up AND down, and 2+ dorsalis pedis Imaging: * * *Final Report* * * DATE OF EXAM: Oct 21 2023 1:15PM [id number] [id number] - XR KNEE 4V AP/PA BOTH+LAT/PEREZ LT / PROCEDURE REASON: Pain * * * * Physician Interpretation * * * * EXAM TITLE: XR KNEE 4V AP/PA BOTH+LAT/PEREZ LT EXAM DATE/TIME: 10/21/2023 1:15 PM COMPARISON: None. CLINICAL INDICATION/HISTORY: Pain TECHNIQUE: AP/PA, lateral and sunrise views of the left knee are presented. FINDINGS: No acute fractures or subluxations are noted. No bony erosions are seen. The joint spaces are well preserved. There is no evidence of joint effusion. The mineralization of the bones is normal. There appears be soft tissue swelling along the anterior aspect of the knee. IMPRESSION IMPRESSION: Soft tissue swelling in the left knee. No acute fracture seen. Railway Traction Line Worker: MAT Transcribe Date/Time: Oct 22 2023 5:09P Dictated by : CHEYANNE VALDEZ MD This examination was interpreted and the report reviewed and electronically signed by: CHEYANNE VALDEZ MD on Oct 22 2023 5:10PM EST Supporting Subjective Information Below: Past Surgical History: PAST SURGICAL HISTORY Procedure Laterality Date LAPAROSCOPIC APPENDECTOMY 07/17/13 LAPAROSCOPY SURG CHOLECYSTECTOMY 11/16/2016 Medications: Current Outpatient Medications Medication Sig dextroamphetamine-amphetamine (ADDERALL) 10 mg tablet Take 10 mg by mouth once daily. meloxicam (MOBIC) 15 mg tablet Take 1 tablet by mouth once daily. predniSONE (DELTASONE) 10 mg tablet 6 tabs po day 1, then 5 tabs day 2, 4 tabs day 3, 3 tabs day 4, 2 tabs day 5, 1 tab day 6. No current facility-administered medications for this visit. Allergies: Latex and Strattera [Atomoxetine Hcl] ROS: General (negative for fatigue, malaise, weight loss/gain) HEENT (negative for headache, earache, recent vision changes, sinus pain, sore throat) Respiratory (no recent shortness of breath, (more content not included)... [facility] 10-21-2023 Note HNO ID: [id number] Author: Chloe Stokes RN Service: ? Author Type: Registered Nurse Type: Progress Notes Filed: 10/23/2023 8:58 AM Note Text: Patient presents with: Left Knee - New: Left knee injury Xray 10/21/2023 Patient states she was demonstrating a wrestling move for her kids when she lost her balance and landed on her left knee with all her body weight. She felt a pop . Went to [facility] hospital and was told her knee was fine. Her knee has continued to hurt and has been swelling. The bruising has dissipated. She states the knee is numb . Patient is a stay at home mom. AMB ROOMING INTAKE FLOWSHEET DATA Pain Pain Level: 5 (worse with walking or activity with kids) Pain Location: Knee-Left Description: Sharp, Throbbing Duration Amount of Time: 1 Duration Units: Months Frequency: Intermittent Intervention/Comfort measure: Reposition, Medication Chloe Stokes RN [facility] 10-21-2023 Note HNO ID: [id number] Author: Arlene Banuelos RT(R) Service: ? Author Type: Furnace And Wash Equipment Operator Type: Progress Notes Filed: 10/21/2023 1:14 PM Note Text: Radiology Service Progress Note PATIENT NAME: Lisbeth Escudero DATE OF SERVICE: October 21, 2023 TIME: 12:53 PM PATIENT IDENTITY VERIFICATION COMPLETED USING TWO (2) IDENTIFIERS: Name and Date of confirmed by patient verbally. FALL SCREENING: Has the patient had 2 falls in the last year or 1 fall with injury or currently using an Ambulatory Assistive Device (Walker, Cane, Wheelchair, Crutches, etc.)? No PATIENT GENDER DATA: Female. status: : No status: NO. PATIENT RELEVANT IMPLANT DATA REVIEWED: Yes RADIOLOGY DEPARTMENT: General X-ray: Exam(s) Completed: Lower Extremity X-Ray(s): Knee, AP / Lat / Tunne / Merchant Left PERIPHERAL IV DATA: Not applicable SIGNED BY: RT Beti(R) October 21, 2023 12:53 PM [facility] 10-21-2023 History of Presen t illness Narrative Floresita Correa PA-C Department of Orthopaedics Orthopaedics [address] [address] Dept: [phone] Dept October 21, 2023 CHIEF COMPLAINT: New of the Left Knee (Left knee injury/Xray 10/21/2023) Ms. Lisbeth Escudero is a 28 year old female who presents with pain and swelling along the anterior aspect of her left knee since an injury that occurred 1 month ago. Patient and her were showing their kids a wrestling move, the patient fell landed on her left knee. As she fell she heard a loud pop . She was seen in the emergency room at [facility], had x-rays and told that nothing was broken . The patient reports that she had quite a bit of bruising along the anterior aspect of the knee, the bruising has resolved but she has swelling and pain as well as numbness which is not improving. She has been taking some intermittent ibuprofen but nothing consistent. Has been massaging the area and taking warm baths. 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 ASSESSMENT: S80.02XA Contusion of left knee, initial encounter (primary encounter diagnosis) M25.562 Acute pain of left knee PLAN: She has quite impressive hematoma across the anterior aspect of her knee. Will get her on a more consistent anti-inflammatory, paired with a steroid as well as some compression from an Ephraim wrap. Advised her to continue with gentle massage as well. I like to see her back in a few weeks to make sure that things are improving, if there is no improvement we may consider some additional imaging of the knee. Ms. Lisbeth Escudero was advised as to contrast therapies and/or to take analgesics/anti-inflammatories as needed and all contraindications were reviewed. OBJECTIVE: Ms. Lisbeth Escudero is a pleasant 28 year old in no apparent distress. Gen:LMP 06/22/2019 nl development, obese, no deformities ENT: Normocephalic, normal hearing, moist mucosa CV: Pulses:DP/PT= 2+ and symmetric, capillary refill < 2 secs, no peripheral edema/varicosities Skin: no rash, bruising or lesions. Good turgor. Psych: cooperative and appropriate, alert and oriented x 3, good mood and affect. Musculoskeletal: KNEE EXAM: Left: Alignment: Neutral Range of motion is 0 degrees in extension and 110 degrees of flexion. Extension La degrees Pain with ROM: Yes, patient is able to hold the leg in extension against gravity. Effusion: No effusion of the joint, large area of swelling over the prebursal area. Tender to the palpation of anterior knee over the prepatellar bursal area. Pain with patellar compression: Yes Stability: Anterior/Posterior stable and Varus/Valgus stable Hip Exam: flexion to 100+ degrees, full extension, internal/external rotation adequate, and no pain with log roll Neurovascular Status: Sensation Intact, Moves foot and ankle up & down, and 2+ dorsalis pedis Imaging: * * *Final Report* * * DATE OF EXAM: Oct 21 2023 1:15PM WRX [id number] - XR KNEE 4V AP/PA BOTH+LAT/PEREZ LT / PROCEDURE REASON: Pain * * * * Physician Interpretation * * * * EXAM TITLE: XR KNEE 4V AP/PA BOTH+LAT/PEREZ LT EXAM DATE/TIME: 10/21/2023 1:15 PM COMPARISON: None. CLINICAL INDICATION/HISTORY: Pain TECHNIQUE: AP/PA, lateral and sunrise views of the left knee are presented. FINDINGS: No acute fractures or subluxations are noted. No bony erosions are seen. The joint spaces are well preserved. There is no evidence of joint effusion. The mineralization of the bones is normal. There appears be soft tissue swelling along the anterior aspect of the knee. IMPRESSION IMPRESSION: Soft tissue swelling in the left knee. No acute fracture seen. Railway Traction Line Worker: PSCB Transcribe Date/Time: Oct 22 2023 5:09P Dictated by : CHEYANNE VALDEZ MD This examination was interpreted and the report reviewed and electronically signed by: CHEYANNE VALDEZ MD on Oct 22 2023 5:10PM EST Supporting Subjective Information Below: Past Surgical History: PAST SURGICAL HISTORY Procedure Laterality Date LAPAROSCOPIC APPENDECTOMY 07/17/13 LAPAROSCOPY SURG CHOLECYSTECTOMY 11/16/2016 Medications: Current Outpatient Medications Medication Sig dextroamphetamine-amphetamine (ADDERALL) 10 mg tablet Take 10 mg by mouth once daily. meloxicam (MOBIC) 15 mg tablet Take 1 tablet by mouth once daily. predniSONE (DELTASONE) 10 mg tablet 6 tabs po day 1, then 5 tabs day 2, 4 tabs day 3, 3 tabs day 4, 2 tabs day 5, 1 tab day 6. No current facility-administered medications for this visit. Allergies: Latex and Strattera [Atomoxetine Hcl] ROS: General (negative for fatigue, malaise, weight loss/gain) HEENT (negative for headache, earache, recent vision changes, sinus pain, sore throat) Respiratory (no recent shortness of breath, hemoptysis) CV (negative for chest tightness, palpitations) Musculoskeletal (see HPI) Psych (no depression, anxiety) This note was partially generated using [employer] voice recognition system, and there may be some incorrect words, spellings, and punctuation that were not noted in checking the note before saving. Floresita Correa PA-C Patient presents with: Left Knee - New: Left knee injury Xray 10/21/2023 Patient states she was demonstrating a wrestling move for her kids when she lost her balance and landed on her left knee with all her body weight. She felt a pop . Went to [facility] and was told her knee was fine. Her knee has continued to hurt and has been swelling. The bruising has dissipated. She states the knee is numb . 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 Pt verbalized understanding. Krysta Berman MA Urine culture did not grow significant amount of urine bacteria. documented in this encounter [facility] 09-25-2023 Miscellaneous Notes Patient notified of results, verbalizes understanding of instructions. Leann Potter LPN Patient was negative for trichomonas, yeast, chlamydia, gonorrhea. Patient was positive for bacterial vaginosis which is not an STD. Patient was called in Flagyl twice a day for 7 days however complete the Flagyl do not drink alcohol on the medication documented in this encounter [facility] 09-24-2023 Note HNO ID: [id number] Author: Gabrielle Mccracken APRN.GAYLE Service: ? Author Type: Nurse Practitioner Type: Progress Notes Filed: 09/24/2023 12:49 PM Note Text: CC: Patient presents with: UTI: Pain and burning and frequency x 4 days HPI Lisbeth Escudero is a 28 year old female who presents with complaint of possible UTI. These symptoms have been present for 7 days. Associated symptoms: burning and frequency Denies: fever, chills, sweats, abdominal pain, and flank pain Treatments: nothing The ROS was otherwise negative. PMH, Medications, labs, allergies, and recent past visits with PCP were reviewed and updated as able. PHYSICAL EXAM: BP 110/70 Pulse 99 Temp 36.2 ?C (97.2 ?F) Resp 16 Wt 107 kg (236 lb) LMP 06/22/2019 SpO2 98% General: Well appearing and alert CV: Regular rate and rhythm without obvious murmur Lungs: clear to auscultation bilaterally Back: straight and symmetric Abdomen: soft, nontender, nondistended PAST MEDICAL HISTORY Diagnosis Date Acute cholecystitis 11/16/2016 PAST SURGICAL HISTORY Procedure Laterality Date LAPAROSCOPIC APPENDECTOMY 07/17/13 LAPAROSCOPY SURG CHOLECYSTECTOMY 11/16/2016 ALLERGIES Latex and Strattera [Atomoxetine Hcl] MEDICATIONS ibuprofen (MOTRIN) 800 mg tablet Take 1 tablet by mouth every 8 hours as needed for pain (with food.). dextroamphetamine-amphetamine (ADDERALL) 10 mg tablet Take 10 mg by mouth once daily. No family history on file. Social History Tobacco Use Smoking status: Former Types: Cigarettes Smokeless tobacco: Never ASSESSMENT/PLAN: 1. Burning with urination - ICD9: 788.1, ICD10: R30.0 - UA DIP, URINE (POC) - URINE CULTURE - BACTERIAL VAGINOSIS NAAT - CATHY/TRICHOMONAS NAAT - GONORRHEA/CHLAMYDIA NAAT Self swab Patient on period currently. Please treat if anything is positive Prescription instructions reviewed with patient as applicable. Potential red flag symptoms discussed with the patient. Reviewed appropriate action plan to take if red flag symptoms occur. Patient agreeable to treatment plan. She will follow up if everything is negative with DEVELOPMENT PLANNER. Gabrielle Mccracken APRN.[facility] 09-24-2023 History of Presen t illness Narrative CC: Patient presents with: UTI: Pain and burning and frequency x 4 days HPI Lisbeth Escudero is a 28 year old female who presents with complaint of possible UTI. These symptoms have been present for 7 days. Associated symptoms: burning and frequency Denies: fever, chills, sweats, abdominal pain, and flank pain Treatments: nothing The ROS was otherwise negative. PMH, Medications, labs, allergies, and recent past visits with PCP were reviewed and updated as able. PHYSICAL EXAM: BP 110/70 Pulse 99 Temp 36.2 C (97.2 F) Resp 16 Wt 107 kg (236 lb) LMP 06/22/2019 SpO2 98% General: Well appearing and alert CV: Regular rate and rhythm without obvious murmur Lungs: clear to auscultation bilaterally Back: straight and symmetric Abdomen: soft, nontender, nondistended PAST MEDICAL HISTORY Diagnosis Date Acute cholecystitis 11/16/2016 PAST SURGICAL HISTORY Procedure Laterality Date LAPAROSCOPIC APPENDECTOMY 07/17/13 LAPAROSCOPY SURG CHOLECYSTECTOMY 11/16/2016 ALLERGIES Latex and Strattera [Atomoxetine Hcl] MEDICATIONS ibuprofen (MOTRIN) 800 mg tablet Take 1 tablet by mouth every 8 hours as needed for pain (with food.). dextroamphetamine-amphetamine (ADDERALL) 10 mg tablet Take 10 mg by mouth once daily. No family history on file. Social History Tobacco Use Smoking status: Former Types: Cigarettes Smokeless tobacco: Never ASSESSMENT/PLAN: 1. Burning with urination - ICD9: 788.1, ICD10: R30.0 - UA DIP, URINE (POC) - URINE CULTURE - BACTERIAL VAGINOSIS NAAT - CATHY/TRICHOMONAS NAAT - GONORRHEA/CHLAMYDIA NAAT Self swab Patient on period currently. Please treat if anything is positive Prescription instructions reviewed with patient as applicable. Potential red flag symptoms discussed with the patient. Reviewed appropriate action plan to take if red flag symptoms occur. Patient agreeable to treatment plan. She will follow up if everything is negative with DEVELOPMENT PLANNER. Gabrielle Mccracken APRN.GAYLE documented in this encounter [facility] 01-07-2023 Note HNO ID: [id number] Author: Michelle Crook APRN.GAYLE Service: ? Author Type: Nurse Practitioner Type: Progress Notes Filed: 01/07/2023 2:19 PM Note Text: Subjective Cough Associated symptoms include sore throat. Pertinent negatives include no chills, no ear pain, no headaches, no myalgias and no shortness of breath. Lisbeth Escudero is a 27 year old female who presents with cough and sore throat for the past 5 days. States temp at home was 99.3. She has not had any known sick contacts. She has not taken any medication at home for her symptoms. Review of Systems Constitutional: Negative for chills, fever and malaise/fatigue. HENT: Positive for sore throat. Negative for congestion and ear pain. Respiratory: Positive for cough. Negative for shortness of breath. Cardiovascular: Negative. Gastrointestinal: Positive for diarrhea. Negative for nausea and vomiting. Musculoskeletal: Negative for myalgias. Neurological: Negative for headaches. BP 100/72 Pulse 95 Temp 36.7 ?C (98.1 ?F) Resp 21 Wt 106.1 kg (234 lb) LMP 06/22/2019 SpO2 97% PAST MEDICAL HISTORY Diagnosis Date Acute cholecystitis 11/16/2016 PAST SURGICAL HISTORY Procedure Laterality Date LAPAROSCOPIC APPENDECTOMY 07/17/13 LAPAROSCOPY SURG CHOLECYSTECTOMY 11/16/2016 ALLERGIES Latex and Strattera [Atomoxetine Hcl] MEDICATIONS ibuprofen (MOTRIN) 800 mg tablet Take 1 tablet by mouth every 8 hours as needed for pain (with food.). dextroamphetamine-amphetamine (ADDERALL) 10 mg tablet Take 10 mg by mouth once daily. Miuuwteulsvwaen-Gxrcssnjj-DJ (BROMFED DM) 2-30-10 mg/5 mL syrup Take 10 mL by mouth three times daily as needed. (Patient not taking: Reported on 01/07/2023) lidocaine viscous (LIDOCAINE VISCOUS) 2 % solution Take 15 mL by mouth every 3 hours as needed for pain. (Patient not taking: Reported on 01/07/2023) ACETAMINOPHEN WITH CODEINE (TYLENOL-CODEINE #3 ORAL) Take by mouth. (Patient not taking: Reported on 05/04/2021 ) etonogestrel subdermal implant 68 mg (NEXPLANON) 68 mg by SUBDERMAL route one time only. (Patient not taking: Reported on 05/04/2021 ) No family history on file. Social History Tobacco Use Smoking status: Every Day Types: Cigarettes Smokeless tobacco: Never Objective Physical Exam Vitals and nursing note reviewed. Constitutional: General: She is not in acute distress. Appearance: Normal appearance. She is obese. She is not toxic-appearing. HENT: Right Ear: Tympanic membrane, ear canal and external ear normal. Left Ear: Tympanic membrane, ear canal and external ear normal. Nose: Nose normal. Mouth/Throat: Mouth: Mucous membranes are moist. Pharynx: Oropharynx is clear. Uvula midline. No oropharyngeal exudate or posterior oropharyngeal erythema. Cardiovascular: Rate and Rhythm: Normal rate and regular rhythm. Heart sounds: Normal heart sounds. Pulmonary: Effort: Pulmonary effort is normal. No respiratory distress. Breath sounds: Normal breath sounds. No wheezing or rales. Musculoskeletal: Cervical back: Neck supple. Skin: General: Skin is warm and dry. Findings: No erythema or rash. Neurological: Mental Status: She is alert. ASSESSMENT/PLAN: 1. Sore throat - ICD9: 462, ICD10: J02.9 (primary diagnosis) - suspect viral - Alere Strep Test negative, no culture pending - Discussed supportive care treatment with fluids, rest and analgesia. - STREP A MOLECULAR (POC) 2. Viral URI with cough - ICD9: 465.9, ICD10: J06.9 - Discussed viral etiology and rationale for treatment. - Symptomatic treatment with prn analgesia - Supportive care with fluids and rest - COVID WITH FLUA+B, ROUTINE - BENZONATATE 100 MG CAPSULE - Follow-up with your PCP in 3-5 days if symptoms have not improved or sooner if symptoms worsen - Discussed red flags and need for immediate medical evaluation if any occur. - Discussed supportive care treatment with fluids, rest and analgesia. - Discussed expected course of illness Michelle Crook APRN.CNP [facility] 01-07-2023 Instructions Michelle Crook APRN.CNP - 01/07/2023 2:16 PM EST ASSESSMENT/PLAN: 1. Sore throat - ICD9: 462, ICD10: J02.9 (primary diagnosis) - suspect viral - Alere Strep Test negative, no culture pending - Discussed supportive care treatment with fluids, rest and analgesia. - STREP A MOLECULAR (POC) 2. Viral URI with cough - ICD9: 465.9, ICD10: J06.9 - Discussed viral etiology and rationale for treatment. - Symptomatic treatment with prn analgesia - Supportive care with fluids and rest - COVID WITH FLUA+B, ROUTINE - BENZONATATE 100 MG CAPSULE - Follow-up with your PCP in 3-5 days if symptoms have not improved or sooner if symptoms worsen - Discussed red flags and need for immediate medical evaluation if any occur. - Discussed supportive care treatment with fluids, rest and analgesia. - Discussed expected course of illness Michelle Crook APRN.CNP Treatment for Viral Upper Respiratory Tract Infections Your body will kill off the virus by itself. Additionally, you can prime your body's immune system. This may help you get better more quickly. Drink lots of fluids Make sure you are eating well Get plenty of rest We do not have any medications that kill off these viruses. Antibiotics are used to treat bacterial infections; however, they are not active against viral infections. There are some things that might help you feel better, though. Vaporizers, humidifiers, hot showers, and hot fluids help open respiratory and sinus passages Grainger Nasal [place] may offer relief of nasal and head congestion Ramirez's Vapor Rub may relieve congestion Tylenol and Advil help control fevers and headaches Salt water gargles help relieve sore throats Chloraceptic spray or throat lozenges may also help relieve sore throat symptoms Occasionally, viral infections turn into something more serious. You should see your doctor or return to the Urgent Care if: You have fevers for longer than five days You have fevers above 102 degrees You are still sick after 10 days You have shortness of breath or wheezing After several days you are getting worse rather than better documented in this encounter [facility] 01-07-2023 History of Presen t illness Narrative Subjective Cough Associated symptoms include sore throat. Pertinent negatives include no chills, no ear pain, no headaches, no myalgias and no shortness of breath. Lisbeth Escudero is a 27 year old female who presents with cough and sore throat for the past 5 days. States temp at home was 99.3. She has not had any known sick contacts. She has not taken any medication at home for her symptoms. Review of Systems Constitutional: Negative for chills, fever and malaise/fatigue. HENT: Positive for sore throat. Negative for congestion and ear pain. Respiratory: Positive for cough. Negative for shortness of breath. Cardiovascular: Negative. Gastrointestinal: Positive for diarrhea. Negative for nausea and vomiting. Musculoskeletal: Negative for myalgias. Neurological: Negative for headaches. BP 100/72 Pulse 95 Temp 36.7 C (98.1 F) Resp 21 Wt 106.1 kg (234 lb) LMP 06/22/2019 SpO2 97% PAST MEDICAL HISTORY Diagnosis Date Acute cholecystitis 11/16/2016 PAST SURGICAL HISTORY Procedure Laterality Date LAPAROSCOPIC APPENDECTOMY 07/17/13 LAPAROSCOPY SURG CHOLECYSTECTOMY 11/16/2016 ALLERGIES Latex and Strattera [Atomoxetine Hcl] MEDICATIONS ibuprofen (MOTRIN) 800 mg tablet Take 1 tablet by mouth every 8 hours as needed for pain (with food.). dextroamphetamine-amphetamine (ADDERALL) 10 mg tablet Take 10 mg by mouth once daily. Maowwrskodfgrnq-Ykjbogahw-WV (BROMFED DM) 2-30-10 mg/5 mL syrup Take 10 mL by mouth three times daily as needed. (Patient not taking: Reported on 01/07/2023) lidocaine viscous (LIDOCAINE VISCOUS) 2 % solution Take 15 mL by mouth every 3 hours as needed for pain. (Patient not taking: Reported on 01/07/2023) ACETAMINOPHEN WITH CODEINE (TYLENOL-CODEINE #3 ORAL) Take by mouth. (Patient not taking: Reported on 05/04/2021 ) etonogestrel subdermal implant 68 mg (NEXPLANON) 68 mg by SUBDERMAL route one time only. (Patient not taking: Reported on 05/04/2021 ) No family history on file. Social History Tobacco Use Smoking status: Every Day Types: Cigarettes Smokeless tobacco: Never Objective Physical Exam Vitals and nursing note reviewed. Constitutional: General: She is not in acute distress. Appearance: Normal appearance. She is obese. She is not toxic-appearing. HENT: Right Ear: Tympanic membrane, ear canal and external ear normal. Left Ear: Tympanic membrane, ear canal and external ear normal. Nose: Nose normal. Mouth/Throat: Mouth: Mucous membranes are moist. Pharynx: Oropharynx is clear. Uvula midline. No oropharyngeal exudate or posterior oropharyngeal erythema. Cardiovascular: Rate and Rhythm: Normal rate and regular rhythm. Heart sounds: Normal heart sounds. Pulmonary: Effort: Pulmonary effort is normal. No respiratory distress. Breath sounds: Normal breath sounds. No wheezing or rales. Musculoskeletal: Cervical back: Neck supple. Skin: General: Skin is warm and dry. Findings: No erythema or rash. Neurological: Mental Status: She is alert. ASSESSMENT/PLAN: 1. Sore throat - ICD9: 462, ICD10: J02.9 (primary diagnosis) - suspect viral - Alere Strep Test negative, no culture pending - Discussed supportive care treatment with fluids, rest and analgesia. - STREP A MOLECULAR (POC) 2. Viral URI with cough - ICD9: 465.9, ICD10: J06.9 - Discussed viral etiology and rationale for treatment. - Symptomatic treatment with prn analgesia - Supportive care with fluids and rest - COVID WITH FLUA+B, ROUTINE - BENZONATATE 100 MG CAPSULE - Follow-up with your PCP in 3-5 days if symptoms have not improved or sooner if symptoms worsen - Discussed red flags and need for immediate medical evaluation if any occur. - Discussed supportive care treatment with fluids, rest and analgesia. - Discussed expected course of illness Michelle Crook APRN.ENG[employer] SET UP OPERATOR TOOL documented in this encounter [facility] 10-02-2022 HCoV 229E RNA MARLA+non-probe Ql (Nph) Not Detected *NA* (10/02/22 5:07 PM) [facility] 05-17-2022 Miscellaneous Notes Left message for patient with results and recommendations.Luzmaria Pizarro LPN Negative for flu and covid please notify thank you documented in this encounter [facility] 05-16-2022 Instructions Lisbeth Avelar PA-C - 05/16/2022 1:39 PM EDT Bacterial vs. Viral/Respiratory Tract Infections What are the differences between bacteria and viruses? Although disease-causing bacteria and viruses cause many common infections, these organisms are not the same. Bacteria can live and are found both inside and outside the human body. Viruses, on the other hand, are much smaller in size than bacteria and cannot survive outside the body s cells. Bacteria contain the genetic material they need to reproduce, while viruses need to invade healthy cells to reproduce. What are antibiotics? Antibiotics are powerful medicines used to treat some infections. However, antibiotics can be harmful when they are not used the right way. In fact, antibiotics themselves can also cause some germ-related problems, such as yeast infections of the vagina and mouth, and a severe form of diarrhea. Antibiotics should only be used when prescribed by a health care provider to treat bacterial infections. How can I tell if an illness or infection is caused by a virus or bacteria? Sometimes it s difficult to tell. The following are some basic guidelines regarding some of the most common illnesses: Colds and flu Viruses cause these illnesses. They cannot be cured with antibiotics. Both children and adults should consider being vaccinated with the influenza and pneumococcal vaccines. Ask your doctor or job setter. Cough or bronchitis Viruses almost always cause these. However, if you have a problem with your lungs or an illness that lasts a long time, bacteria might actually be the cause. Your doctor might decide to try using an antibiotic. Sore throat Most sore throats are caused by viruses and don t need antibiotics. However, strep throat is caused by bacteria. A throat swab and a lab test are usually needed before your doctor will prescribe an antibiotic for strep throat. Ear infections There are several types of ear infections. Antibiotics are used for some, but not all, ear infections. Sinus infections A runny nose and yellow or green mucus do not necessarily mean you need an antibiotic. It is normal for mucus to get thick and change color during the course of a viral infection. For some long-lasting or severe cases, your doctor might decide to prescribe antibiotics. So antibiotics won t help cure all infections? That s correct. Antibiotics only work against infections caused by bacteria. They do not work against any infections caused by viruses. If you have a viral infection, antibiotics will not cure it, help you feel better, or prevent someone else from getting your virus. What is antibiotic resistance and why should I be concerned? Usually, antibiotics kill bacteria or stop them from growing. Antibiotic resistance occurs when bacteria adapt or change in a way that makes a specific antibiotic less able to kill them or stop them from growing. These resistant bacteria survive and multiply causing more harm, such as a longer or more severe illness, more doctor visits, and the need for treatment with a more expensive and more powerful antibiotic. Over time, more and more bacteria are becoming more and more resistant to some of the most commonly used antibiotics. As this happens, fewer antibiotics are able to treat common, severe, and even rare illnesses caused by bacteria. To make sure the antibiotics that we already have remain effective, they must be used appropriately. What can I do to help avoid antibiotic-resistant infections? Start by having an open-minded conversation with your health care provider about your illness and about antibiotic resistance. Ask if an antibiotic is likely to be effective in treating the illness. Don t demand an antibiotic when your health care provider determines that one is not appropriate. Now you know that antibiotics don t cure every illness and that you don t need to take antibiotics for most colds, coughs, sore throats, or runny noses because these illnesses are mainly caused by viruses. Often, these illnesses simply need to run their course. Sometimes, this can take two weeks. Do, however, call your health care provider if your illness gets worse or lasts longer than two weeks. Ask what you can do to help relieve your symptoms. For example, measures that can help a person with a cold or flu feel better include: taking a warm bath, increasing fluid intake, using a cool mist vaporizer or saline nasal spray (available from the [employer] drug store) to relieve congestion, or using a sore throat spray or ice chips to soothe the sore throat. If your health care provider does determine that an antibiotic is necessary to treat your illness: Take the antibiotic exactly as instructed. Do not skip does. Complete the prescribed course of treatment, even if you are feeling better. Sometimes, if treatment is stopped too soon, some bacteria might survive and cause the illness to return. Do not save any antibiotics for the next time you get sick. Never take someone else s antibiotic. Their antibiotic might not be appropriate for your illness, and taking the wrong drug can delay correct treatment and allow bacteria to multiply. Copyright 9265-1809 [facility]. All rights reserved documented in this encounter [facility] 05-16-2022 History of Presen t illness Narrative Subjective HPI HPI Lisbeth Escudero is a 27 year old female who presents today for CC of sore throat (w/ tonsil stones), bilateral ear pain, nasal congestion, and productive cough w/ green/blood tinged x 2 weeks. Pt has tried antihistamine OTC. Denies any hx of recurrent strep. No fevers/chills, body aches. BP 122/72 Pulse 94 Temp 36.9 C (98.4 F) Resp 18 Wt 104.8 kg (231 lb) LMP 06/22/2019 SpO2 98% ALLERGIES Allergen Reactions Latex Itching, Rash Strattera [Atomoxet* Hives ACTIVE PROBLEM LIST Acute Appendicitis Without Mention of Peritonitis Urinary Tract Infection No family history on file. Social History Tobacco Use Smoking status: Current Every Day Smoker Types: Cigarettes Smokeless tobacco: Never Used Substance Use Topics Alcohol use: Not on file Drug use: Not on file ROS Objective Physical Exam documented in this encounter [facility] documented as of this encounter (statuses as of 05/16/2022) [facility]09-13-2013 History of Past illness Narrative* Problem Noted Date Resolved Date Acute appendicitis with generalized peritonitis 07/24/2013 07/24/2013 documented as of this encounter (statuses as of 05/17/2022) [facility]09-13-2013 History of Past illness Narrative* Problem Noted Date Resolved Date Acute appendicitis with generalized peritonitis 07/24/2013 07/24/2013 documented as of this encounter (statuses as of 01/07/2023) [address]13-2013 History of Past illness Narrative* Problem Noted Date Diagnosed Date Resolved Date Acute appendicitis with gene ralized peritonitis 07/24/2013 07/24/2013 documented as of this encounter (statuses as of 09/24/2023) [facility]09-13-2013 History of Past illness Narrative* Problem Noted Date Diagnosed Date Resolved Date Acute appendicitis with gene ralized peritonitis 07/24/2013 07/24/2013 documented as of this encounter (statuses as of 09/25/2023) [place] [id number] History of Past illness Narrative* Problem Noted Date Diagnosed Date Resolved Date Acute appendicitis with gene ralized peritonitis 07/24/2013 07/24/2013 documented as of this encounter (statuses as of 09/26/2023) [place] [id number] History of Past illness Narrative* Problem Noted Date Diagnosed Date Resolved Date Acute appendicitis with gene ralized peritonitis 07/24/2013 07/24/2013 documented as of this encounter (statuses as of 10/22/2023) [place] [id number] History of Past illness Narrative* Problem Noted Date Diagnosed Date Resolved Date Acute appendicitis with gene ralized peritonitis 07/24/2013 07/24/2013 documented as of this encounter (statuses as of 10/23/2023) [facility]ments Appointment Date:10/22/2022 11:00:00 AM Scheduled Provider:ANGIE QUEZADA MD Location: [facility] Appointment Type: EMPLOYEE RELATIONS ADMINISTRATOR Appointment Date:01/01/2023 03:30:00 PM Scheduled Provider:CHARITY STYLES Location:[facility] Appointment Type:PC OV Controlled Medication Future Scheduled Tests Laboratory* Thyroid Stimulating Hormone 12/18/21 * Free T4 12/18/21 * Clostridium difficile toxin A and B (PCR) (AO) 10/02/22 * A1C Hemoglobin 12/18/21 * Lipid Profile 12/18/21 * Sedimentation Rate Automated 01/29/22 * Complete Metabolic Panel 12/18/21 [facility] Evaluation + Plan note Future Appointments Appointment Date:10/22/2022 11:00:00 AM Scheduled Provider:ANGIE QUEZADA MD Location: [facility] Appointment Type: EMPLOYEE RELATIONS ADMINISTRATOR Appointment Date:01/01/2023 03:30:00 PM Scheduled Provider:CHARITY STYLES Location:[facility] Appointment Type:PC OV Controlled Medication Future Scheduled Tests Laboratory* Thyroid Stimulating Hormone 12/18/21 * Free T4 12/18/21 * A1C Hemoglobin 12/18/21 * Lipid Profile 12/18/21 * Sedimentation Rate Automated 01/29/22 * Complete Metabolic Panel 12/18/21 [facility] Evaluation note* Diagnosis Viral URI with cough- Primary Acute upper respiratory infections of unspecified site Sore throat Acute pharyngitis documented in this encounter [facility] [place] note* Diagnosis Sore throat- Primary Acute pharyngitis Viral URI with cough Acute upper respiratory infections of unspecified site documented in this encounter [facility] [place] note* Diagnosis Burning with urination- Primary Dysuria documented in this encounter [facility] [place] note* Diagnosis Pain Generalized pain documented in this encounter [facility] note* Diagnosis Contusion of left knee, initial encounter- Primary Acute pain of left knee [facility] Narrative No data available for this section [facility] Hospital Discharge instructions No data available for this section [facility] Progress note No data available for this section [facility] Reason for visit Narrative* Diagnostic Procedure Only (Routine) - Closed Specialty Diagnoses / Procedures Referred By Roz t Referred To Contact XR IMAGING Diagnoses Pain Procedures XR KNEE GENERAL 4V AP BOTH/PA BOTH/LAT/MERC LEFT RADIOLOGIC EXAM KNEE COMPLETE 4/MORE VIEWS Floresita Correa PA-C [address] [place] [address] [place] [id number] Referral ID Status Reason Start Date Expiration Date V isits Requested Visits Authorized [id number] Closed Auto-Generate d Referral 10/21/2023 11/19/2024 1 1 [facility] Summary Purpose Family History No Family History Records FoundNo Family History Records FoundNo Family History Records Found Advance Directives No Advanced Directives Records FoundNo Advanced Directives Records FoundNo Advanced Directives Records Found Health Concerns Infection Onset Date Last Indicated Resolved Time COVID-19 Rule-Out 05/16/2022 05/16/2022 05/17/2022 2:20 AM EDT Additional Source Comments INFORMATION SOURCE (unrecogn ized section and content) DATE CREATED AUTHOR AUTHOR'S ORGANIZ ATION 09/30/2023 [facility] ([place]) DATE CREATED AUTHOR AUTHOR'S ORGANIZ ATION 10/23/2023 [facility] Source Comments (unrecognize d section and content) In the event this informatio n is protected by the Federal Confidentiality of Alcohol and Drug Abuse Patient Records regulations: The Federal rules restrict any use of the information to criminally investigate or prosecute any alcohol or drug abuse patient.[facility] the event this information is protected by the Federal Confidentiality of Alcohol and Drug Abuse Patient Records regulations: The Federal rules restrict any use of the information to criminally investigate or prosecute any alcohol or drug abuse patient.[facility] the event this information is protected by the Federal Confidentiality of Alcohol and Drug Abuse Patient Records regulations: The Federal rules restrict any use of the information to criminally investigate or prosecute any alcohol or drug abuse patient.[facility] the event this information is protected by the Federal Confidentiality of Alcohol and Drug Abuse Patient Records regulations: The Federal rules restrict any use of the information to criminally investigate or prosecute any alcohol or drug abuse patient.[facility] the event this information is protected by the Federal Confidentiality of Alcohol and Drug Abuse Patient Records regulations: The Federal rules restrict any use of the information to criminally investigate or prosecute any alcohol or drug abuse patient.[facility] the event this information is protected by the Federal Confidentiality of Alcohol and Drug Abuse Patient Records regulations: The Federal rules restrict any use of the information to criminally investigate or prosecute any alcohol or drug abuse patient.[facility] the event this information is protected by the Federal Confidentiality of Alcohol and Drug Abuse Patient Records regulations: The Federal rules restrict any use of the information to criminally investigate or prosecute any alcohol or drug abuse patient.[facility] the event this information is protected by the Federal Confidentiality of Alcohol and Drug Abuse Patient Records regulations: The Federal rules restrict any use of the information to criminally investigate or prosecute any alcohol or drug abuse patient.[facility] Reason for Visit (unrecogniz ed section and content) Reason Comments Results Reason Comments Cough sore throat x 5 days Reason Comments UTI Pain and burning and frequency x 4 days Reason Comments New Left knee injuryXray 10/21/2023 Care Team (unrecognized sect ion and content) Care Team Personnel Name: CHARITY STYLES Position: P4 Advanced Practice Nurse Member Role: Primary Care Physician Address: Address: [address] [place] [address] Care Team Related Persons Name: NONE, NONE Care Team Personnel Name: CHARITY STYLES Position: P4 Advanced Practice Nurse Member Role: Primary Care Physician Address: Address: [address] [place] [address] Care Team Related Persons Name: NONE, NONE Care Teams (unrecognized sec tion and content) Second Operator Relationship Specialty Start Date End Date Charity Styles APRN.CNP [address] [place] [address] PCP - General Family Medicine 01/07/23 Second Operator Relationship Specialty Start Date End Date Charity Styles APRN.CNP [address] [place] [address] PCP - General Family Medicine 01/07/23 Second Operator Relationship Specialty Start Date End Date Charity Styles APRN.ENGINE LATHE SET UP OPERATOR [employer]OL [address] [place] [address] PCP - General Family Medicine 01/07/23 Second Operator Relationship Specialty Start Date End Date Charity Styles APRN.ENGINE LATHE SET UP OPERATOR [employer] [address] [place] [address] PCP - General Family Medicine 01/07/23 FOR RECORDS PERTAINING TO PATIENTS WHO ARE OR HAVE BEEN ENROLLED IN A CHEMICAL DEPENDENCY/SUBSTANCEABUSE PROGRAM, SOME INFORMATION MAY BE OMITTED. This clinical summary was aggregated from multiple sources. Caution should be exercised in using it in the provision of clinical care. This summary normalizes information from multiple sources, and as a consequence, information in this document may materially change the coding, format and clinical context of patient data. In addition, data may be omitted in some cases. CLINICAL DECISIONS SHOULD BE BASED ON THE PRIMARY CLINICAL RECORDS. [facility] [employer] [facility]. provides no warranty or guarantee of the accuracy or completeness of information in this document.
[2023-11-10 14:08] VITALS: BMI 33.5
[2023-11-10] MEDS: AMOXICILLIN 500 MG CAPSULE PO (14:44)
[2023-11-10 14:56] VITALS: BP 120/74; PULSE 114; RESP 16; TEMP 37; O2SAT 97
== END 2023-11-10 14:57 | disposition home or self-care (01) ==
PROVIDERS: Emergency Provider Emergency Medicine; PCP Nurse Practitioner Primary Care; Visit Provider Emergency Medicine
DX: J02.0 Streptococcal pharyngitis (principal); Z90.49 Acquired absence of other specified parts of digestive tract; F17.210 Nicotine dependence, cigarettes, uncomplicated
CPT/HCPCS: 87880; 99282

== ENCOUNTER 2024-10-12 19:57 | Emergency (ER) | payer MEDICAID, SELFPAY ==
[2024-10-12 19:57] VITALS: BP 122/92; PULSE 88; RESP 16; TEMP 36.8; O2SAT 100; BMI 39.9
--- NOTE | 2024-10-12 21:04 | EDS_ITS ---
HPI History of Present Illness Chief Complaint: Wound Check Informant: patient Onset/Context/Timing Onset: Month(s) Narrative Narrative: 29-year-old female states about 3 months ago she noticed what looked like a sm all blister on the lateral aspect of her left breast. She is not sure how it got there. She states that it opened at 1 point and would occasionally seep a little bit of fluid but nothing major, and for the most part it has been a little sore but not gotten better. She talk to her doctor about it and was referred to dermatology but has not heard anything from them and has not seen them yet. In the meantime she states she has been on 3 courses of antibiotics for respiratory issues, one of them was a Z-Partha she is not sure what the others were, but she continued to have the sore blister on her breast since then. Today, it started oozing a small amount of blood. She went to urgent care to have it evaluated today, she states they gave her prescription for antibiotic, but she is concerned that this could represent cancer or something else and so she states although she was just at urgent care 20 minutes ago she is here for second opinion. She denies any systemic symptoms. She has had no discharge from the nipple or problems with any other part of her breast. [facility] Home Medications ?Medication ?Instructions ?Recorded ?Last Taken ?Type dextroamphetamine-amphetamine ER 20 mg PO DAILY 09/28/23 Unknown History 20 mg 24hr capsule,extend release (Adderall XR) amoxicillin 500 mg capsule 500 mg PO BID #19 caps 11/10/23 Unknown Rx Allergy/AdvReac Type Severity Reaction Status Date / Time latex Allergy Hives Verified 10/12/24 19:58 tramadol Allergy Chest Verified 10/12/24 19:58 tightness Surgical History delivery delivered Hx of appendectomy Hx of cholecystectomy Social History Smoking Status: Current every day smoker tobacco type: cigarettes alcohol intake: never substance use type: does not use caffeine: Yes what type of physical activity do you participate in: none seatbelt use: always do you feel safe at home: Yes additional social history: Donnel- Patient works at [employer] Patient works at [employer] ED Constitutional Constitutional ED: Denies chills or fever(s) Respiratory/Chest Respiratory/Chest: Reports other Details: Left breast sore, see HPI for details Integumentary Reports other Details: Lesion left breast see above EXAM Physical Exam Const Vital Signs: 10/12/24 19:57 Temperature 98.2 F Temperature Source Oral Pulse Rate 88 Respiratory Rate 16 Blood Pressure 122/92 H Blood Pressure Mean 102 Pulse Ox 100 Oxygen Delivery Method Room Air Positive well nourished and well developed General Appearance ED: well developed Neck supple Chest Wall Chest Narrative: Left breast examined with nurse professional athlete. There is a subcentimeter shallow ulcerated wound with a small amount of surrounding erythema, consistent with the depth of a ruptured blister. There is no induration or subcutaneous mass palpable to suggest an abscess. With squeezing the area there is no discharge or bleeding. There is superficial scab present. Resp normal respiratory effort Extremity normal to inspection Neuro oriented x3, CN's II-XII intact bilaterally and no sensory deficits noted Motor Exam: strength 5/5 throughout Psych mental status grossly normal Skin Skin Narrative: See left breast exam for details no other rashes or lesions noted. MDM MDM MDM Narrative Medical decision making narrative: As I discussed with the patient, this looks like it could be an infected ruptured blister and it may not be healing for a couple months if she is continuing to have it irritated and/or clothes or bra rubbing on it. It does appear superficial and it does not appear to be very suspicious for something malignant, although as I discussed with the patient, I am not able to rule out breast cancer here in the emergency department. As emergency physician I do not regularly do breast exams looking for masses, and although I do not palpate anything here, I recommend that she follow-up. She showed me what she was prescribed urgent care it is cephalexin orally and mupirocin topically, I think this is entirely appropriate and that is what I recommend in addition to some type of barrier such as gauze or a Band-Aid to keep anything from rubbing on the area and irritating it further. She is comfortable with this plan, I also gave her dermatology follow-up. Discharge Plan Triage Chief Complaint: Wound Check ED Provider: Brian Cavanaugh Dx/Rx/DC Orders Clinical Impression: Infected blister of left breast Instructions: ED Wound Check (Infection) Prescriptions: No Action amoxicillin 500 mg capsule 500 mg PO BID Qty: 19 0RF dextroamphetamine-amphetamine [Adderall XR] 20 mg capsule,extended release 24hr 20 mg PO DAILY Patient Comments: TAKE 1 CAPSULE BY MOUTH EVERY DAY IN THE MORNING Primary Care Provider: Ina Marks NP Referrals: Hank Rebollar MD [Med Staff - Cafe Manager] - As soon as possible Ina Marks NP, [employer]ER-[facility] [Primary Care Provider] - Activity Restrictions/Additional Instructions: Agree w/ the topical and oral antibiotics you were prescribed today; keep the area covered with small piece of gauze (or even a band-aid) to prevent any clothing from rubbing. Follow up with derm or your doctor as soon as able; if not getting better with these treatments, other testing may be needed such as an ultrasound. Print Language: Eritrean Disposition Disposition: Home, Self Care Discharge Date/Time: 10/12/24 21:12
== END 2024-10-12 21:12 | disposition home or self-care (01) ==
PROVIDERS: Emergency Provider Emergency Medicine; PCP Nurse Practitioner Family; Visit Provider Emergency Medicine
DX: S20.122A Blister (nonthermal) of breast, left breast, initial encounter (principal); Z90.49 Acquired absence of other specified parts of digestive tract; F17.210 Nicotine dependence, cigarettes, uncomplicated
CPT/HCPCS: 99282